=== PATIENT | female | born 1975 | race American Indian/Alaskan Native ===

== ENCOUNTER 2017-07-13 23:00 | Emergency (ER) | payer MEDICAID, MEDICARE, OTHER ==
[2017-07-13] MEDS ORDERED: LORazepam 1 MG Tab PO ONE (23:01)
--- NOTE | 2017-07-13 23:05 | EDM.PDOC ---
ED HPI GENERAL MEDICAL PROBLEM - General Chief Complaint: Asthma Stated Complaint: IN BY AMBULANCE Time Seen by Provider: 07/13/17 23:03 Source of Information: Reports: Patient, EMS History Limitations: Reports: No Limitations - History of Present Illness INITIAL COMMENTS - FREE TEXT/NARRATIVE: states been having sob all day worse tonight and neb not working, EMS gave duoneb & IV solumedrol en route. - Related Data Allergies Allergy/AdvReac Type Severity Reaction Status Date / Time No Known Allergies Allergy Verified 07/13/17 23:10 Home Meds: Home Meds Albuterol [Proventil HFA] 6.7 gm INH Q6H 11/08/15 [History] Albuterol/Ipratropium [DuoNeb 3.0-0.5 MG/3 ML] 3 ml NEB Q4HRRT 11/08/15 [History ] Past Medical History Respiratory History: Reports: Asthma Endocrine/Metabolic History: Reports: Hyperthyroidism - Past Surgical History Female Surgical History: Reports: Section, Hysterectomy Social & Family History - Family History Family Medical History: Unobtainable - Tobacco Use Smoking Status *Q: Current Every Day Smoker Years of Tobacco use: 25 Packs/Tins Daily: 0.1 Used Tobacco, but Quit: No Second Hand Smoke Exposure: No - Recreational Drug Use Recreational Drug Use: No - Living Situation & Occupation Living situation: Reports: with Family Occupation: Unemployed ED ROS GENERAL - Review of Systems Review Of Systems: ROS reveals no pertinent complaints other than HPI. ED EXAM, GENERAL - Physical Exam Exam: See Below Exam Limited By: No Limitations General Appearance: Alert, WD/WN, Anxious, Mild Distress Ears: Hearing Grossly Normal Throat/Mouth: Normal Voice, No Airway Compromise Head: Atraumatic Neck: Non-Tender, Full Range of Motion Respiratory/Chest: Decreased Breath Sounds, Rhonchi, Wheezing, Accessory Muscle Use, Prolonged Expiration Cardiovascular: Regular Rate, Rhythm GI/Abdominal: Soft, Non-Tender Neurological: Alert, Oriented, Normal Cognition, Normal Gait, No Motor/Sensory Deficits Psychiatric: Anxious Skin Exam: Warm, Dry, Normal Color Lymphatic: No Adenopathy Course - Vital Signs Last Recorded V/S: Last Vital Signs Temp 36.8 C 07/13/17 23:06 Pulse 130 H 07/13/17 23:06 Resp 24 H 07/13/17 23:06 BP 117/59 L 07/13/17 23:06 Pulse Ox 97 07/13/17 23:06 - Orders/Labs/Meds Orders: Active Orders 24 hr Category Date Time Status RT Aerosol Therapy [RC] ASDIRECTED Care 07/13/17 23:08 Active CULTURE BLOOD [BC] Stat Lab 07/13/17 23:10 Received Labs: Laboratory Tests 07/13/17 07/13/17 07/13/17 Range/Units 23:10 23:10 23:10 WBC 14.8 H (5.0-10.0) 10^3/uL RBC 4.66 (4.2-5.4) 10^6/uL Hgb 13.5 (12.0-16.0) g/dL Hct 39.8 (37.0-47.0) % MCV 85.4 (80-100) fL MCH 29.0 (27.0-34.0) pg MCHC 33.9 (33.0-35.0) g/dL Plt Count 334 D (150-450) 10^3/uL Neut % (Auto) 65.7 (42.2-75.2) % Lymph % (Auto) 23.0 (20.5-50.1) % [place] % (Auto) 4.9 (2-8) % Eos % (Auto) 6.3 H (1.0-3.0) % Baso % (Auto) 0.1 (0.0-1.0) % Add Manual Diff Yes Neutrophils % (Manual) 70 (42-75) % Lymphocytes % (Manual) 21 (20-50) % Monocytes % (Manual) 4 (2-8) % Eosinophils % (Manual) 5 H (1-3) % Sodium 139 (135-145) mmol/L Potassium 3.7 (3.6-5.0) mmol/L Chloride 104 (101-111) mmol/L Carbon Dioxide 26.0 (21.0-31.0) mmol/L Anion Gap 12.7 BUN 15 (7-18) mg/dL Creatinine 0.8 (0.6-1.3) mg/dL Est Cr Clr Drug Dosing 72.45 mL/min Estimated GFR (MDRD) > 60 BUN/Creatinine Ratio 18.75 Glucose 150 H (74-105) mg/dL Lactic Acid 2.1 (0.5-2.2) mmol/L Calcium 8.9 (8.4-10.2) mg/dl Total Bilirubin 0.4 (0.2-1.0) mg/dL AST 22 (10-42) IU/L ALT 17 (10-60) IU/L Alkaline Phosphatase 67 (42-121) IU/L Total Protein 7.3 (6.7-8.2) g/dl Albumin 3.9 (3.2-5.5) g/dl Globulin 3.4 Albumin/Globulin Ratio 1.15 Meds: Medications Discontinued Medications Generic Name Dose Route Start Last Admin Trade Name Freq PRN Reason Stop Dose Admin Albuterol/Ipratropium 3 ml 07/13/17 23:07 07/13/17 23:13 Duoneb 3.0-0.5 Mg/3 Ml NEB 07/13/17 23:08 3 ml ONETIME ONE Administration Lorazepam 1 mg 07/13/17 23:08 07/13/17 23:13 Ativan IVPUSH 07/13/17 23:09 1 mg ONETIME ONE Administration Lorazepam Confirm 07/14/17 00:07 07/14/17 04:21 Ativan Administered 07/14/17 00:08 Not Given Dose 1 mg .ROUTE .STK-MED ONE - Re-Assessments/Exams Free Text/Narrative Re-Assessment/Exam: 07/13/17 23:45 results discussed with pt who is feeling much better post IV ativan. pt admits to doing things she shouldn't. Departure - Departure Time of Disposition: 00:15 Disposition: Home, Self-Care 01 Condition: Good Clinical Impression: Asthma exacerbation Qualifiers: Asthma severity: mild Asthma persistence: intermittent Qualified Code(s): J45.21 - Mild intermittent asthma with (acute) exacerbation - Discharge Information Instructions: Asthma, Adult, [id number] Forms: ED Department Discharge Additional Instructions: 1) CONTINUE HOME MEDS 2) FOLLOW UP AT CLINIC 3) RECHECK NEEDED RX TOGO; ATIVAN 1MG X 1 - My Orders Last 24 Hours: My Active Orders 07/13/17 23:08 RT Aerosol Therapy [RC] ASDIRECTED 07/13/17 23:10 CULTURE BLOOD [BC] Stat - Assessment/Plan Last 24 Hours: My Active Orders 07/13/17 23:08 RT Aerosol Therapy [RC] ASDIRECTED 07/13/17 23:10 CULTURE BLOOD [BC] Stat
[2017-07-13 23:07] VITALS: BP 117/59
[2017-07-13] MEDS ORDERED: Albuterol/Ipratropium 3.0-0.5 MG/3 ML Neb Soln NEB ONE (23:07)
[2017-07-13] MEDS ORDERED: LORazepam 2 MG/ML Syringe IVPUSH ONE (23:08)
[2017-07-13 23:38] LABS: CHLORIDE,CL 104 mmol/L (101-111); SODIUM,NA 139 mmol/L (135-145)
[2017-07-14] MEDS ORDERED: LORazepam 1 MG Tab ONE (00:07)
== END 2017-07-14 00:16 | disposition home or self-care (01) ==
LOC: DL.ED 23:00
DX: J45.21 Mild intermittent asthma with (acute) exacerbation (principal); F17.210 Nicotine dependence, cigarettes, uncomplicated
CPT/HCPCS: 36415; 71010; 80053; 83605; 85025; 87040; 99285; A9270; J2060

== ENCOUNTER 2017-07-15 03:36 | Emergency (ER) | payer MEDICAID, OTHER ==
[2017-07-15] MEDS ORDERED: methylPREDNISolone Sodium Succinate 125 MG/2 ML SDV IVPUSH ONE (03:38)
[2017-07-15 03:39] VITALS: BP 131/53
--- NOTE | 2017-07-15 03:41 | EDM.PDOC ---
ED HPI GENERAL MEDICAL PROBLEM - General Chief Complaint: Respiratory Problem Stated Complaint: IN BY AMBULANCE Time Seen by Provider: 07/15/17 03:39 Source of Information: Reports: Patient History Limitations: Reports: No Limitations - History of Present Illness INITIAL COMMENTS - FREE TEXT/NARRATIVE: was here yesterday for same ran out of Rx for neb. been SOB all day got worse tonight. EMS gave neb en route. - Related Data Allergies Allergy/AdvReac Type Severity Reaction Status Date / Time No Known Allergies Allergy Verified 07/15/17 03:37 Home Meds: Home Meds Albuterol [Proventil HFA] 6.7 gm INH Q6H 11/08/15 [History] Albuterol/Ipratropium [DuoNeb 3.0-0.5 MG/3 ML] 3 ml NEB Q4HRRT 11/08/15 [History ] Past Medical History - Past Health History Medical/Surgical History: Denies Medical/Surgical History Respiratory History: Reports: Asthma Endocrine/Metabolic History: Reports: Hyperthyroidism - Past Surgical History Female Surgical History: Reports: Section, Hysterectomy Social & Family History - Family History Family Medical History: Unobtainable - Tobacco Use Smoking Status *Q: Current Every Day Smoker Years of Tobacco use: 25 Packs/Tins Daily: 0.1 Used Tobacco, but Quit: No Second Hand Smoke Exposure: No - Caffeine Use Caffeine Use: Reports: Coffee - Recreational Drug Use Recreational Drug Use: No Recreational Drug Type: Reports: Marijuana/Hashish, Methamphetamine Recreational Drug Use Frequency: Binges Recreational Drug Last Use: t-1 - Living Situation & Occupation Living situation: Reports: with Family Occupation: Unemployed ED ROS GENERAL - Review of Systems Review Of Systems: ROS reveals no pertinent complaints other than HPI. ED EXAM, GENERAL - Physical Exam Exam: See Below Exam Limited By: No Limitations General Appearance: Alert, WD/WN, Mild Distress, Moderate Distress, Other (sob) Ears: Hearing Grossly Normal Throat/Mouth: Normal Voice, No Airway Compromise Head: Atraumatic Neck: Non-Tender, Full Range of Motion Respiratory/Chest: Decreased Breath Sounds, Rales, Rhonchi, Accessory Muscle Use Cardiovascular: Regular Rate, Rhythm GI/Abdominal: Soft, Non-Tender Neurological: Alert, Oriented, Normal Cognition, Normal Gait, No Motor/Sensory Deficits Psychiatric: Anxious Skin Exam: Warm, Dry, Normal Color Lymphatic: No Adenopathy Course - Vital Signs Last Recorded V/S: Last Vital Signs Temp 36.6 C 07/15/17 03:37 Pulse 120 H 07/15/17 03:37 Resp 28 H 07/15/17 03:37 BP 131/53 L 07/15/17 03:37 Pulse Ox 98 07/15/17 03:37 - Orders/Labs/Meds Orders: Active Orders 24 hr Category Date Time Status RT Aerosol Therapy [RC] ASDIRECTED Care 07/15/17 04:12 Active DRUG SCREEN URINE BIORAD [URCHEM] Stat Lab 07/15/17 03:46 Ordered UA W/O MICROSCOPIC [URIN] Stat Lab 07/15/17 03:46 Ordered Labs: Laboratory Tests 07/15/17 07/15/17 Range/Units 03:55 03:55 WBC 13.6 H (5.0-10.0) 10^3/uL RBC 4.87 (4.2-5.4) 10^6/uL Hgb 14.0 (12.0-16.0) g/dL Hct 41.6 (37.0-47.0) % MCV 85.4 (80-100) fL MCH 28.7 (27.0-34.0) pg MCHC 33.7 (33.0-35.0) g/dL Plt Count 346 (150-450) 10^3/uL Neut % (Auto) 67.8 (42.2-75.2) % Lymph % (Auto) 20.0 L (20.5-50.1) % [place] % (Auto) 5.2 (2-8) % Eos % (Auto) 6.9 H (1.0-3.0) % Baso % (Auto) 0.1 (0.0-1.0) % Sodium 139 (135-145) mmol/L Potassium 3.1 L (3.6-5.0) mmol/L Chloride 104 (101-111) mmol/L Carbon Dioxide 24.0 (21.0-31.0) mmol/L Anion Gap 14.1 BUN 8 (7-18) mg/dL Creatinine 0.6 (0.6-1.3) mg/dL Est Cr Clr Drug Dosing 96.60 mL/min Estimated GFR (MDRD) > 60 BUN/Creatinine Ratio 13.33 Glucose 132 H (74-105) mg/dL Calcium 9.2 (8.4-10.2) mg/dl Total Bilirubin 0.7 (0.2-1.0) mg/dL AST 19 (10-42) IU/L ALT 17 (10-60) IU/L Alkaline Phosphatase 65 (42-121) IU/L Total Protein 7.9 (6.7-8.2) g/dl Albumin 4.1 (3.2-5.5) g/dl Globulin 3.8 Albumin/Globulin Ratio 1.08 Meds: Medications Discontinued Medications Generic Name Dose Route Start Last Admin Trade Name Freq PRN Reason Stop Dose Admin Albuterol/Ipratropium 3 ml 07/15/17 04:12 07/15/17 04:16 Duoneb 3.0-0.5 Mg/3 Ml NEB 07/15/17 04:13 3 ml ONETIME ONE Administration Lorazepam 1 mg 07/15/17 04:30 07/15/17 04:35 Ativan IVPUSH 07/15/17 04:31 1 mg ONETIME ONE Administration Methylprednisolone Sodium Succinate 125 mg 07/15/17 03:38 07/15/17 03:42 Solu-Medrol IVPUSH 07/15/17 03:39 125 mg ONETIME ONE Administration - Re-Assessments/Exams Free Text/Narrative Re-Assessment/Exam: 07/15/17 06:31 re-exam; sleeping arousable no further sob. Departure - Departure Time of Disposition: 06:31 Disposition: Home, Self-Care 01 Condition: Good Clinical Impression: Asthma with status asthmaticus Qualifiers: Asthma severity: severe persistent Qualified Code(s): J45.52 - Severe persistent asthma with status asthmaticus - Discharge Information Instructions: Shortness of Breath, [id number] Forms: ED Department Discharge Additional Instructions: 1) continue nebs 3 times daily as needed. 2) follow up at clinic or recheck as needed rx given; albuterol 2.5mg solution tid prn x 1 box - My Orders Last 24 Hours: My Active Orders 07/15/17 03:46 DRUG SCREEN URINE BIORAD [URCHEM] Stat UA W/O MICROSCOPIC [URIN] Stat 07/15/17 04:12 RT Aerosol Therapy [RC] ASDIRECTED - Assessment/Plan Last 24 Hours: My Active Orders 07/15/17 03:46 DRUG SCREEN URINE BIORAD [URCHEM] Stat UA W/O MICROSCOPIC [URIN] Stat 07/15/17 04:12 RT Aerosol Therapy [RC] ASDIRECTED
[2017-07-15] MEDS ORDERED: Albuterol/Ipratropium 3.0-0.5 MG/3 ML Neb Soln NEB ONE (04:12)
[2017-07-15 04:21] LABS: CHLORIDE,CL 104 mmol/L (101-111); SODIUM,NA 139 mmol/L (135-145)
[2017-07-15] MEDS ORDERED: LORazepam 2 MG/ML Syringe IVPUSH ONE (04:30)
== END 2017-07-15 06:38 | disposition home or self-care (01) ==
LOC: DL.ED 03:36
DX: J45.52 Severe persistent asthma with status asthmaticus (principal); F17.210 Nicotine dependence, cigarettes, uncomplicated
CPT/HCPCS: 36415; 80053; 85025; 94640; 96374; 96375; 99285; J2060; J2930

== ENCOUNTER 2017-12-04 19:39 | Emergency (ER) | payer MEDICAID, OTHER ==
[2017-12-04] MEDS ORDERED: Succinylcholine 200 MG/10 ML MDV IV ONE (19:40)
[2017-12-04] MEDS ORDERED: Midazolam 1 MG/ML 2 ML SDV IV ONE (19:40)
[2017-12-04] MEDS ORDERED: Rocuronium 50 MG/5 ML Vial IV ONE (19:40)
[2017-12-04] MEDS ORDERED: fentaNYL 100 MCG/2 ML SDV IV ONE (19:40)
[2017-12-04] MEDS ORDERED: Propofol 200 MG/20 ML SDV IV ONE (19:40)
[2017-12-04] MEDS ORDERED: Albuterol 0.083% 2.5 MG/3 ML Neb Soln NEB ONE ×2 (19:42→20:30)
[2017-12-04] MEDS ORDERED: LORazepam 2 MG/ML Syringe IVPUSH ONE ×2 (19:42→20:01)
[2017-12-04] MEDS ORDERED: Sodium Chloride 0.9% 1,000 ML IV ONE (19:48)
[2017-12-04] MEDS ORDERED: Albuterol/Ipratropium 3.0-0.5 MG/3 ML Neb Soln NEB ONE (20:05)
[2017-12-04 20:14] VITALS: BP 103/83
--- NOTE | 2017-12-04 20:22 | EDM.PDOC ---
ED HPI GENERAL MEDICAL PROBLEM - General Chief Complaint: Respiratory Problem Stated Complaint: BY AMBULANCE-RESP COMPLAINT Time Seen by Provider: 12/04/17 19:45 Source of Information: Reports: Patient, EMS History Limitations: Reports: No Limitations - History of Present Illness INITIAL COMMENTS - FREE TEXT/NARRATIVE: ED via [facility] with respiratory distress, hx asthma, patient reports intially sx starting this am, then reported to Nursing started yesterday. Has been using nebs at home without relief. Admits to meth use yesterday. Multiple varied age trackmarks to upper extremities. Duoneb and solumedrol 125mg given enroute by EMS. Treatments ADVERTISING SALES ASSOCIATE: Reports: Other (see below) Other Treatments ADVERTISING SALES ASSOCIATE: albuterol nebulizers - Related Data Allergies Allergy/AdvReac Type Severity Reaction Status Date / Time No Known Allergies Allergy Verified 12/04/17 19:54 Home Meds: Home Meds Albuterol [Proventil HFA] 6.7 gm INH Q6H 11/08/15 [History] Albuterol/Ipratropium [DuoNeb 3.0-0.5 MG/3 ML] 3 ml NEB Q4HRRT 11/08/15 [History ] Past Medical History - Past Health History Medical/Surgical History: Denies Medical/Surgical History Respiratory History: Reports: Asthma Endocrine/Metabolic History: Reports: Hyperthyroidism - Past Surgical History Female Surgical History: Reports: Section, Hysterectomy Social & Family History - Family History Family Medical History: Unobtainable - Tobacco Use Smoking Status *Q: Current Every Day Smoker Years of Tobacco use: 25 Packs/Tins Daily: 0.1 Used Tobacco, but Quit: No Second Hand Smoke Exposure: No - Caffeine Use Caffeine Use: Reports: Coffee - Recreational Drug Use Recreational Drug Use: No Recreational Drug Type: Reports: Marijuana/Hashish, Methamphetamine Recreational Drug Use Frequency: Binges Recreational Drug Last Use: t-1 - Living Situation & Occupation Living situation: Reports: with Family Occupation: Unemployed ED ROS GENERAL - Review of Systems Review Of Systems: Unable To Obtain ED EXAM, GENERAL - Physical Exam Exam: See Below Exam Limited By: Respiratory Distress General Appearance: Alert, Severe Distress Eye Exam: Bilateral Eye: EOMI, PERRL Ears: Normal External Exam, Normal TMs Nose: Normal Inspection Throat/Mouth: Other (membranes dry) Head: Atraumatic, Normocephalic Neck: Normal Inspection Respiratory/Chest: Respiratory Distress, Rhonchi, Wheezing (inspiratory expiratory throughout) Cardiovascular: Regular Rate, Rhythm, Tachycardia GI/Abdominal: Normal Bowel Sounds Back Exam: Normal Inspection Extremities: Normal Range of Motion Neurological: Inattentive Psychiatric: Anxious Skin Exam: Warm, Dry, Ecchymosis (scatered), Tattoo(s), Other (multiple track sharp to anticubitial reas and right hand) Course - Vital Signs Last Recorded V/S: Last Vital Signs Temp 97.2 F 12/04/17 19:44 Pulse 139 H 12/04/17 20:05 Resp 34 H 12/04/17 20:05 BP 103/83 12/04/17 20:05 Pulse Ox 96 12/04/17 20:05 - Orders/Labs/Meds Orders: Active Orders 24 hr Category Date Time Status Bailey Catheter Insertion [Insert Urinary Catheter] [OM. Care 12/04/17 21:15 Ordered PC] Q24H RT Aerosol Therapy [RC] ASDIRECTED Care 12/04/17 19:43 Active RT Aerosol Therapy [RC] ASDIRECTED Care 12/04/17 20:05 Active RT Aerosol Therapy [RC] ASDIRECTED Care 12/04/17 20:30 Active ABG [BLOOD GAS ARTERIAL] [BG] Stat Lab 12/04/17 20:26 Ordered Labs: Laboratory Tests 12/04/17 12/04/17 12/04/17 Range/Units 20:00 20:00 20:00 WBC 12.3 H (5.0-10.0) 10^3/uL RBC 4.55 (4.2-5.4) 10^6/uL Hgb 13.3 (12.0-16.0) g/dL Hct 38.6 (37.0-47.0) % MCV 84.8 (80-100) fL MCH 29.2 (27.0-34.0) pg MCHC 34.5 (33.0-35.0) g/dL Plt Count 327 (150-450) 10^3/uL Neut % (Auto) 56.7 (42.2-75.2) % Lymph % (Auto) 29.0 (20.5-50.1) % [place] % (Auto) 7.9 (2-8) % Eos % (Auto) 6.2 H (1.0-3.0) % Baso % (Auto) 0.2 (0.0-1.0) % Sodium 140 (135-145) mmol/L Potassium 3.3 L (3.6-5.0) mmol/L Chloride 107 (101-111) mmol/L Carbon Dioxide 26.0 (21.0-31.0) mmol/L Anion Gap 10.3 BUN 8 (7-18) mg/dL Creatinine 0.6 (0.6-1.3) mg/dL Est Cr Clr Drug Dosing 96.60 mL/min Estimated GFR (MDRD) > 60 BUN/Creatinine Ratio 13.33 Glucose 116 H (74-105) mg/dL Lactic Acid 2.2 (0.5-2.2) mmol/L Calcium 8.0 L (8.4-10.2) mg/dl Total Bilirubin 0.3 (0.2-1.0) mg/dL AST 20 (10-42) IU/L ALT 13 (10-60) IU/L Alkaline Phosphatase 58 (42-121) IU/L Total Protein 6.7 (6.7-8.2) g/dl Albumin 3.6 (3.2-5.5) g/dl Globulin 3.1 Albumin/Globulin Ratio 1.16 Urine Color (YELLOW) Urine Appearance (CLEAR) Urine pH (5.0-9.0) Ur Specific [place] (1.005-1.030) Urine Protein (NEGATIVE) Urine Glucose (UA) (NEGATIVE) Urine Ketones (NEGATIVE) Urine Occult Blood (NEGATIVE) Urine Nitrite (NEGATIVE) Urine Bilirubin (NEGATIVE) Urine Urobilinogen (0.2-1.0) mg/dL Ur Leukocyte Esterase (NEGATIVE) Urine RBC /HPF Urine WBC (0-5/HPF) /HPF Ur Epithelial Cells /HPF Urine Bacteria (0-FEW/HPF) /HPF Urine Opiates Screen (NEGATIVE) Ur Oxycodone Screen (NEGATIVE) Urine Methadone Screen (NEGATIVE) Ur Barbiturates Screen (NEGATIVE) U Tricyclic Antidepress (NEGATIVE) Ur Phencyclidine Scrn (NEGATIVE) Ur Amphetamine Screen (NEGATIVE) U Methamphetamines Scrn (NEGATIVE) Urine MDMA Screen (NEGATIVE) U Benzodiazepines Scrn (NEGATIVE) Urine Cocaine Screen (NEGATIVE) U Marijuana (THC) Screen (NEGATIVE) 12/04/17 12/04/17 Range/Units 20:59 20:59 WBC (5.0-10.0) 10^3/uL RBC (4.2-5.4) 10^6/uL Hgb (12.0-16.0) g/dL Hct (37.0-47.0) % MCV (80-100) fL MCH (27.0-34.0) pg MCHC (33.0-35.0) g/dL Plt Count (150-450) 10^3/uL Neut % (Auto) (42.2-75.2) % Lymph % (Auto) (20.5-50.1) % [place] % (Auto) (2-8) % Eos % (Auto) (1.0-3.0) % Baso % (Auto) (0.0-1.0) % Sodium (135-145) mmol/L Potassium (3.6-5.0) mmol/L Chloride (101-111) mmol/L Carbon Dioxide (21.0-31.0) mmol/L Anion Gap BUN (7-18) mg/dL Creatinine (0.6-1.3) mg/dL Est Cr Clr Drug Dosing mL/min Estimated GFR (MDRD) BUN/Creatinine Ratio Glucose (74-105) mg/dL Lactic Acid (0.5-2.2) mmol/L Calcium (8.4-10.2) mg/dl Total Bilirubin (0.2-1.0) mg/dL AST (10-42) IU/L ALT (10-60) IU/L Alkaline Phosphatase (42-121) IU/L Total Protein (6.7-8.2) g/dl Albumin (3.2-5.5) g/dl Globulin Albumin/Globulin Ratio Urine Color Light yellow (YELLOW) Urine Appearance Clear (CLEAR) Urine pH 6.0 (5.0-9.0) Ur Specific [place] <= 1.005 (1.005-1.030) Urine Protein Negative (NEGATIVE) Urine Glucose (UA) Negative (NEGATIVE) Urine Ketones Negative (NEGATIVE) Urine Occult Blood Negative (NEGATIVE) Urine Nitrite Negative (NEGATIVE) Urine Bilirubin Negative (NEGATIVE) Urine Urobilinogen 0.2 (0.2-1.0) mg/dL Ur Leukocyte Esterase Negative (NEGATIVE) Urine RBC 0-5 /HPF Urine WBC 0-5 (0-5/HPF) /HPF Ur Epithelial Cells Few /HPF Urine Bacteria Rare (0-FEW/HPF) /HPF Urine Opiates Screen Negative (NEGATIVE) Ur Oxycodone Screen Negative (NEGATIVE) Urine Methadone Screen Negative (NEGATIVE) Ur Barbiturates Screen Negative (NEGATIVE) U Tricyclic Antidepress Negative (NEGATIVE) Ur Phencyclidine Scrn Negative (NEGATIVE) Ur Amphetamine Screen Positive H (NEGATIVE) U Methamphetamines Scrn Positive H (NEGATIVE) Urine MDMA Screen Negative (NEGATIVE) U Benzodiazepines Scrn Negative (NEGATIVE) Urine Cocaine Screen Negative (NEGATIVE) U Marijuana (THC) Screen Positive H (NEGATIVE) Meds: Medications Discontinued Medications Generic Name Dose Route Start Last Admin Trade Name Freq PRN Reason Stop Dose Admin Albuterol 2.5 mg 12/04/17 19:42 12/04/17 19:49 Proventil Neb Soln NEB 12/04/17 19:43 2.5 mg ONETIME ONE Administration Albuterol 2.5 mg 12/04/17 20:30 12/04/17 20:34 Proventil Neb Soln NEB 12/04/17 20:31 2.5 mg ONETIME ONE Administration Albuterol/Ipratropium 3 ml 12/04/17 20:05 12/04/17 20:09 Duoneb 3.0-0.5 Mg/3 Ml NEB 12/04/17 20:06 3 ml ONETIME ONE Administration Fentanyl Confirm 12/04/17 20:46 Sublimaze Administered 12/04/17 20:47 Dose 100 mcg .ROUTE .STK-MED ONE Sodium Chloride 1,000 mls @ 999 mls/hr 12/04/17 19:48 12/04/17 19:50 Normal Saline IV 12/04/17 20:48 999 mls/hr .BOLUS ONE Administration Lorazepam 1 mg 12/04/17 19:42 12/04/17 19:49 Ativan IVPUSH 12/04/17 19:43 1 mg ONETIME ONE Administration Lorazepam 1 mg 12/04/17 20:01 12/04/17 20:06 Ativan IVPUSH 12/04/17 20:02 1 mg ONETIME ONE Administration Midazolam HCl Confirm 12/04/17 20:45 Versed 1 Mg/Ml Administered 12/04/17 20:46 Dose 2 mg .ROUTE .STK-MED ONE - Re-Assessments/Exams Free Text/Narrative Re-Assessment/Exam: 12/04/17 21:10 minimal change with multiple Albuterol and Duo neb treatments. Continued wheezing and distress. Increasing effort and lethargy. Patient informed impending intubation due to respiratory distress. Nodding head in understanding . Dr Dionisio Joel accepting of patient in tx for further management. ELECTRICAL INSTRUMENT TECHNICIAN here for patient sedation and ET placement. Patient intubated 7-O ET. Placement confirmed via CXR. [facility] here. Transport via [facility]. Stable but guarded condition 12/04/17 21:26 Departure - Departure Time of Disposition: 21:25 Disposition: DC/Tfer to Acute Hospital 02 Condition: Serious Clinical Impression: Methamphetamine abuse Asthma with status asthmaticus Qualifiers: Asthma severity: severe persistent Qualified Code(s): J45.52 - Severe persistent asthma with status asthmaticus - Discharge Information Referrals: PCP,Unobtain [Ordering Only Provider] - Forms: ED Department Discharge - My Orders Last 24 Hours: My Active Orders 12/04/17 19:43 RT Aerosol Therapy [RC] ASDIRECTED 12/04/17 20:05 RT Aerosol Therapy [RC] ASDIRECTED 12/04/17 20:26 ABG [BLOOD GAS ARTERIAL] [BG] Stat 12/04/17 20:30 RT Aerosol Therapy [RC] ASDIRECTED 12/04/17 21:15 Bailey Catheter Insertion [Insert Urinary Catheter] [OM.PC] Q24H - Assessment/Plan Last 24 Hours: My Active Orders 12/04/17 19:43 RT Aerosol Therapy [RC] ASDIRECTED 12/04/17 20:05 RT Aerosol Therapy [RC] ASDIRECTED 12/04/17 20:26 ABG [BLOOD GAS ARTERIAL] [BG] Stat 12/04/17 20:30 RT Aerosol Therapy [RC] ASDIRECTED 12/04/17 21:15 Bailey Catheter Insertion [Insert Urinary Catheter] [OM.PC] Q24H
[2017-12-04 20:31] LABS: CHLORIDE,CL 107 mmol/L (101-111); SODIUM,NA 140 mmol/L (135-145)
[2017-12-04 20:33] LABS: O2 DELIVERY DEVICE ROOM AIR
[2017-12-04] MEDS ORDERED: Midazolam 1 MG/ML 2 ML SDV ONE (20:45)
[2017-12-04] MEDS ORDERED: fentaNYL 100 MCG/2 ML SDV ONE (20:46)
--- NOTE | 2017-12-04 21:13 | PCM.SN ---
- Free Text/Narrative Note: Intubation. Request per ER provider to intubate Pt. Pt w resp distress and fatigue secondary to asthma. Pt states NPO > 8 hrs, no allergies, no complications w anesthesia. Pt medicated w 2 mg versed and 100 mcg fentanyl at approx 2049, defasciculating dose of 5 of rocuronium. 150 mg of propofol and 70 mg of anectine. Pt intubated w glidescope, 7.0 ETT 20 cm at the lip. Cricoid pressure maintained throughout intubation. BBS w ETT fogging and pos ETCO2, OG tube placed and ETT placement confirmed w X ray. Pt given additional 50 mg of Propofol and 30 mg of rocuronium at approx 2104. Care handed off to [employer] full report
[2017-12-05 07:15] LABS: ALLEN TEST PERFORMED; BASE EXCESS ARTERIAL -7 mmol/L ((-2)-(+3)); BICARBONATE,ARTERIAL 18.6 mmol/L (22-26); O2 SATURATION ARTERIAL 91 % (95-100); PCO2 ARTERIAL 41 mmHg (35-45); PO2 ARTERIAL 65 mmHg (70-100)
== END 2017-12-04 21:20 ==
LOC: DL.ED 19:39
DX: J45.52 Severe persistent asthma with status asthmaticus (principal); F15.10 Other stimulant abuse, uncomplicated; F17.210 Nicotine dependence, cigarettes, uncomplicated
CPT/HCPCS: 31500; 36415; 36600; 51702; 71045; 80053; 80305; 81001; 82803; 83605; 85025; 96365; 96375; 99285; J0330; J2060; J2250; J2704; J3010; J7030; J7620

== ENCOUNTER 2020-02-20 22:48 | Emergency (ER) | payer MEDICAID, OTHER ==
[2020-02-20 23:03] VITALS: BP 138/79; PULSE 135
[2020-02-20] MEDS ORDERED: predniSONE 20 MG Tab PO ONE (23:06)
[2020-02-20] MEDS ORDERED: Albuterol/Ipratropium 3.0-0.5 MG/3 ML Neb Soln NEB ONE (23:06)
--- NOTE | 2020-02-20 23:10 | EDM.PDOC ---
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 Treatments - Related Data Allergies Allergy/AdvReac Type Severity Reaction Status Date / Time No Known Allergies Allergy Verified 02/20/20 22:55 Home Meds: Home Meds Albuterol [Proventil HFA] 6.7 gm INH Q6H 11/08/15 [History] Albuterol/Ipratropium [DuoNeb 3.0-0.5 MG/3 ML] 3 ml NEB Q4HRRT 11/08/15 [History ] Fluticasone Propion/Salmeterol [Wixela 500-50 Inhub] 1 inh INH DAILY 02/20/20 [ History] Past Medical History - Past Health History Medical/Surgical History: Denies Medical/Surgical History Respiratory History: Reports: Asthma Psychiatric History: Reports: Addiction Endocrine/Metabolic History: Reports: Hyperthyroidism - Past Surgical History Female Surgical History: Reports: Section, Hysterectomy Social & Family History - Family History Family Medical History: Unobtainable - Caffeine Use Caffeine Use: Reports: Coffee - Living Situation & Occupation Living situation: Reports: with Family Occupation: Unemployed ED ROS GENERAL - Review of Systems Review Of Systems: Comprehensive ROS is negative, except as noted in HPI. ED EXAM, GENERAL - Physical Exam Exam: See Below Exam Limited By: No Limitations General Appearance: Alert, WD/WN, Mild Distress, Other (sob) Ears: Hearing Grossly Normal Throat/Mouth: Normal Voice, No Airway Compromise Head: Atraumatic Neck: Non-Tender, Full Range of Motion Respiratory/Chest: Decreased Breath Sounds, Rhonchi, Wheezing Cardiovascular: Regular Rate, Rhythm GI/Abdominal: Soft, Non-Tender Neurological: Alert, Oriented, Normal Cognition, Normal Gait, No Motor/Sensory Deficits Psychiatric: Flat Affect Skin Exam: Warm, Dry, Normal Color Lymphatic: No Adenopathy Course - Vital Signs Last Recorded V/S: Last Vital Signs Temp 36.8 C 02/20/20 22:59 Pulse 135 H 02/20/20 22:59 Resp 22 H 02/20/20 22:59 BP 138/79 02/20/20 22:59 Pulse Ox 93 L 02/20/20 22:59 - Orders/Labs/Meds Orders: Active Orders 24 hr Category Date Time Status RT Aerosol Therapy [RC] ASDIRECTED Care 02/20/20 23:06 Active Meds: Medications Discontinued Medications Generic Name Dose Route Start Last Admin Trade Name Elver PRN Reason Stop Dose Admin Albuterol/Ipratropium 3 ml 02/20/20 23:06 02/20/20 23:13 Duoneb 3.0-0.5 Mg/3 Ml NEB 02/20/20 23:07 3 ml ONETIME ONE Administration Methylprednisolone Sodium Succinate 125 mg 02/20/20 23:36 02/20/20 23:44 Solu-Medrol IM 02/20/20 23:37 125 mg ONETIME ONE Administration Prednisone 20 mg 02/20/20 23:06 02/20/20 23:12 Prednisone PO 02/20/20 23:07 20 mg ONETIME ONE Administration Departure - Departure Time of Disposition: 23:07 Disposition: Home, Self-Care 01 Condition: Good Clinical Impression: Asthma exacerbation Qualifiers: Asthma severity: moderate Asthma persistence: persistent Qualified Code(s): J45.41 - Moderate persistent asthma with (acute) exacerbation - Discharge Information Instructions: Asthma, Adult, [id number] Forms: ED Department Discharge Additional Instructions: 1) continue nebs 2) follow up at clinic rx given; medrol dospak Sepsis Event Note - Evaluation Sepsis Screening Result: No Definite Risk - Focused Exam Vital Signs: Vital Signs Temp Pulse Resp BP Pulse Ox 02/20/20 22:59 36.8 C 135 H 22 H 138/79 93 L Date Exam was Performed: 02/20/20 Time Exam was Performed: 23:51 - My Orders Last 24 Hours: My Active Orders 02/20/20 23:06 RT Aerosol Therapy [RC] ASDIRECTED - Assessment/Plan Last 24 Hours: My Active Orders 02/20/20 23:06 RT Aerosol Therapy [RC] ASDIRECTED
[2020-02-20] MEDS ORDERED: methylPREDNISolone Sodium Succinate 125 MG/2 ML SDV IM ONE (23:36)
== END 2020-02-20 23:48 | disposition home or self-care (01) ==
LOC: DL.ED 22:48
DX: J45.41 Moderate persistent asthma with (acute) exacerbation (principal)
CPT/HCPCS: 96372; 99284; J2930; J7512; J7620-GY

== ENCOUNTER 2020-03-24 21:10 | Inpatient (IN) | payer MEDICAID, OTHER ==
[2020-03-24] MEDS ORDERED: Albuterol/Ipratropium 3.0-0.5 MG/3 ML Neb Soln ONE (21:13)
[2020-03-24] MEDS ORDERED: Albuterol/Ipratropium 3.0-0.5 MG/3 ML Neb Soln NEB ONE ×2 (21:15→22:23)
[2020-03-24] MEDS ORDERED: Magnesium Sulfate/D5W 2 GM in Premix Bag 1 BAG IV ONE (21:15)
[2020-03-24] MEDS ORDERED: Sodium Chloride 0.9% 10 ML Syringe FLUSH PRN (21:15)
[2020-03-24] MEDS ORDERED: Sodium Chloride 0.9% 1,000 ML IV ONE ×2 (21:15→22:25)
[2020-03-24] MEDS ORDERED: methylPREDNISolone Sodium Succinate 125 MG/2 ML SDV IVPUSH ONE (21:16)
[2020-03-24 21:51] LABS: ANION GAP 13.9 mEq/L (7-13); CHLORIDE,CL 103 mmol/L (98-107); SODIUM,NA 139 mmol/L (136-145)
--- NOTE | 2020-03-24 21:52 | EDM.PDOC ---
ED HPI GENERAL MEDICAL PROBLEM - General Chief Complaint: Asthma Stated Complaint: ASTHMA Time Seen by Provider: 03/24/20 21:15 Source of Information: Reports: Patient, RN, RN Notes Reviewed History Limitations: Reports: Respiratory Distress - History of Present Illness INITIAL COMMENTS - FREE TEXT/NARRATIVE: Presents to ER with complaint of respiratory distress. Patient states this is been going on for the past 3 days and she has been using her inhalers and nebulizers at home. She states she had a friend stopover today, so had a ride to town, so was brought to the ER at this time. Patient denies fever chills, states she has had a cough. Denies any pain. Denies N/V/D, denies chest pains. Onset: Gradual Duration: Constant, Getting Worse Location: Reports: Chest Severity: Moderate Improves with: Reports: None Worsens with: Reports: None - Related Data Allergies Allergy/AdvReac Type Severity Reaction Status Date / Time No Known Allergies Allergy Verified 03/24/20 21:15 Home Meds: Home Meds Albuterol [Proventil HFA] 6.7 gm INH Q6H 11/08/15 [History] Albuterol/Ipratropium [DuoNeb 3.0-0.5 MG/3 ML] 3 ml NEB Q4HRRT 11/08/15 [History] Fluticasone Propion/Salmeterol [Wixela 500-50 Inhub] 1 inh INH DAILY 02/20/20 [History] Past Medical History - Past Health History Medical/Surgical History: Denies Medical/Surgical History Respiratory History: Reports: Asthma Psychiatric History: Reports: Addiction Endocrine/Metabolic History: Reports: Hyperthyroidism - Past Surgical History Female Surgical History: Reports: Section, Hysterectomy Social & Family History - Family History Family Medical History: Unobtainable - Tobacco Use Smoking Status *Q: Never Smoker Second Hand Smoke Exposure: No - Caffeine Use Caffeine Use: Reports: Coffee - Recreational Drug Use Recreational Drug Use: No - Living Situation & Occupation Living situation: Reports: with Family Occupation: Unemployed ED ROS GENERAL - Review of Systems Review Of Systems: Comprehensive ROS is negative, except as noted in HPI. ED EXAM, GENERAL - Physical Exam Exam: See Below Exam Limited By: Respiratory Distress General Appearance: Alert, WD/WN, Moderate Distress Eye Exam: Bilateral Eye: EOMI, Normal Inspection Ears: Normal External Exam, Hearing Grossly Normal Nose: Normal Inspection Throat/Mouth: Normal Inspection, Normal Voice, No Airway Compromise Head: Atraumatic, Normocephalic Neck: Normal Inspection, Supple, Non-Tender, Full Range of Motion Respiratory/Chest: Respiratory Distress, Decreased Breath Sounds, Crackles (throughout), Wheezing (throughout) Cardiovascular: Normal Peripheral Pulses, No Edema, No Gallop, No JVD, No Murmur, No Rub, Tachycardia Peripheral Pulses: 2+: Radial (L), Radial (R) GI/Abdominal: Normal Bowel Sounds, Soft, Non-Tender, No Organomegaly, No Distention, No Abnormal Bruit, No Mass, Pelvis Stable (Female) Exam: Deferred Rectal (Female) Exam: Deferred Back Exam: Normal Inspection, Full Range of Motion, NT Extremities: Normal Inspection, Normal Range of Motion, Non-Tender, Normal Capillary Refill, No Pedal Edema Neurological: Alert, Oriented, CN II-XII Intact, Normal Cognition, Normal Gait, Normal Reflexes, No Motor/Sensory Deficits Psychiatric: Normal Affect, Normal Mood, Anxious Skin Exam: Warm, Dry, Intact, Normal Color, No Rash Lymphatic: No Adenopathy Course - Vital Signs Last Recorded V/S: Last Vital Signs Temp 96.5 F L 03/24/20 21:12 Pulse 144 H 03/24/20 21:12 Resp 28 H 03/24/20 21:12 BP 130/96 H 03/24/20 21:12 Pulse Ox 94 L 03/24/20 21:12 - Orders/Labs/Meds Orders: Active Orders 24 hr Category Date Time Status Admission Diagnosis [ADT] Stat ADT 03/24/20 23:33 Ordered Admission Status [Patient Status] [ADT] Routine ADT 03/24/20 23:33 Active EKG 12 Lead [EKG Documentation Completion] [RC] URGENT Care 03/24/20 21:42 Active Peripheral IV Care [RC] . DIRECTED Care 03/24/20 21:16 Active RT Aerosol Therapy [RC] ASDIRECTED Care 03/24/20 21:16 Active RT Aerosol Therapy [RC] ASDIRECTED Care 03/24/20 22:23 Active Sodium Chloride 0.9% [Saline Flush] Med 03/24/20 21:15 Active 10 ml FLUSH ASDIRECTED PRN Peripheral IV Insertion Adult [OM.PC] Stat Oth 03/24/20 21:13 Ordered Medication Orders Sodium Chloride (Saline Flush) 10 ml FLUSH ASDIRECTED PRN PRN Reason: Keep Vein Open Last Admin: 03/24/20 21:29 Dose: 10 ml Documented by: LUZMA Labs: Laboratory Tests 03/24/20 03/24/20 03/24/20 Range/Units 21:30 21:30 21:30 WBC 12.6 H (5.0-10.0) 10^3/uL RBC 5.99 H (4.2-5.4) 10^6/uL Hgb 16.5 H D (12.0-16.0) g/dL Hct 48.3 H (37.0-47.0) % MCV 80.6 D (80-100) fL MCH 27.5 (27.0-34.0) pg MCHC 34.2 (33.0-35.0) g/dL Plt Count 461 H D (150-450) 10^3/uL Neut % (Auto) 68.7 (42.2-75.2) % Lymph % (Auto) 20.3 L (20.5-50.1) % [place] % (Auto) 5.8 (2-8) % Eos % (Auto) 5.0 H (1.0-3.0) % Baso % (Auto) 0.2 (0.0-1.0) % Sodium 139 (136-145) mmol/L Potassium 3.9 (3.5-5.1) mmol/L Chloride 103 (98-107) mmol/L Carbon Dioxide 26 (21-32) mmol/L Anion Gap 13.9 H (7-13) mEq/L BUN 7 (7-18) mg/dL Creatinine 0.82 (0.55-1.02) mg/dL Est Cr Clr Drug Dosing 69.24 mL/min Estimated GFR (MDRD) > 60 BUN/Creatinine Ratio 8.5 (No establ ref range) Glucose 158 H (74-99) mg/dL Lactic Acid 1.5 (0.4-2.0) mmol/L Calcium 9.1 (8.5-10.1) mg/dL Magnesium 1.9 (1.8-2.4) mg/dL Total Bilirubin 0.5 (0.2-1.0) mg/dL AST 21 (15-37) U/L ALT 35 (14-59) U/L Alkaline Phosphatase 120 H (46-116) U/L Total Protein 8.5 H (6.4-8.2) g/dL Albumin 3.3 L (3.4-5.0) g/dL Globulin 5.2 Albumin/Globulin Ratio 0.63 Meds: Medications Generic Name Dose Route Start Last Admin Trade Name Freq PRN Reason Stop Dose Admin Sodium Chloride 10 ml 03/24/20 21:15 03/24/20 21:29 Saline Flush FLUSH 10 ml ASDIRECTED PRN Administration Keep Vein Open Discontinued Medications Generic Name Dose Route Start Last Admin Trade Name Freq PRN Reason Stop Dose Admin Albuterol/Ipratropium 3 ml 03/24/20 21:15 03/24/20 21:14 Duoneb 3.0-0.5 Mg/3 Ml NEB 03/24/20 21:16 3 ml ONETIME ONE Administration Albuterol/Ipratropium Confirm 03/24/20 21:13 03/24/20 21:20 Duoneb 3.0-0.5 Mg/3 Ml Administered 03/24/20 21:14 Not Given Dose 3 ml .ROUTE .STK-MED ONE Albuterol/Ipratropium 3 ml 03/24/20 22:23 03/24/20 22:27 Duoneb 3.0-0.5 Mg/3 Ml NEB 03/24/20 22:24 3 ml ONETIME ONE Administration Sodium Chloride 1,000 mls @ 999 mls/hr 03/24/20 21:15 03/24/20 21:29 Normal Saline IV 03/24/20 22:15 999 mls/hr .BOLUS ONE Administration Magnesium Sulfate/Dextrose 2 200 mls @ 100 mls/hr 03/24/20 21:15 03/24/20 21:38 gm/ Premix IV 03/24/20 23:14 100 mls/hr ONETIME ONE Administration Sodium Chloride 1,000 mls @ 999 mls/hr 03/24/20 22:25 03/24/20 22:28 Normal Saline IV 03/24/20 23:25 999 mls/hr .BOLUS ONE Administration Methylprednisolone Sodium Succinate 125 mg 03/24/20 21:16 03/24/20 21:32 Solu-Medrol IVPUSH 03/24/20 21:17 125 mg ONETIME ONE Administration - Radiology Interpretation Free Text/Narrative:: Chest xray: PROCEDURE INFORMATION: Exam: XR Chest, 1 View Exam date and time: 03/24/2020 9:51 PM Age: 44 years old Clinical indication: Other: Asthma TECHNIQUE: Imaging protocol: XR of the chest Views: 1 view. COMPARISON: CR Chest 1V Frontal 12/04/2017 9:02 PM FINDINGS: Lungs: Aeration and architecture is normal, There is moderate, diffuse thickening of the bronchial alexandre. bronchi moderate Pleural space: The pleural surfaces are normal. There are no signs of effusion or pneumothorax. Heart/Mediastinum: The heart and mediastinum appear normal.. Bones/joints: Normal IMPRESSION: 1. Moderate airway disease, asthma versus bronchiolitis. 2. Remainder normal. Thank you for allowing us to participate in the care of your patient. Dictated and Authenticated by: Carlos Koenig MD 03/24/2020 10:00 PM Central Time ([place] & [place]) See rad report - Re-Assessments/Exams Free Text/Narrative Re-Assessment/Exam: 03/24/20 23:32 Discussed patient case with Dr. Beavers who agreed to accept the patient for inpatient admission. Departure - Departure Time of Disposition: 23:32 Disposition: Admitted As Inpatient 66 Condition: Fair Clinical Impression: Asthma with status asthmaticus Qualifiers: Asthma severity: severe persistent Qualified Code(s): J45.52 - Severe persistent asthma with status asthmaticus - Discharge Information *PRESCRIPTION DRUG MONITORING PROGRAM REVIEWED*: No *COPY OF PRESCRIPTION DRUG MONITORING REPORT IN PATIENT KAREEM: No Forms: ED Department Discharge Sepsis Event Note (ED) - Evaluation Sepsis Screening Result: No Definite Risk - Focused Exam Vital Signs: Vital Signs Temp Pulse Resp BP Pulse Ox 03/24/20 21:12 96.5 F L 144 H 28 H 130/96 H 94 L - My Orders Last 24 Hours: My Active Orders 03/24/20 21:13 Peripheral IV Insertion Adult [OM.PC] Stat 03/24/20 21:15 Sodium Chloride 0.9% [Saline Flush] 10 ml FLUSH ASDIRECTED PRN 03/24/20 21:16 Peripheral IV Care [RC] . DIRECTED RT Aerosol Therapy [RC] ASDIRECTED 03/24/20 21:42 EKG 12 Lead [EKG Documentation Completion] [RC] URGENT 03/24/20 22:23 RT Aerosol Therapy [RC] ASDIRECTED 03/24/20 23:33 Admission Diagnosis [ADT] Stat Admission Status [Patient Status] [ADT] Routine - Assessment/Plan Last 24 Hours: My Active Orders 03/24/20 21:13 Peripheral IV Insertion Adult [OM.PC] Stat 03/24/20 21:15 Sodium Chloride 0.9% [Saline Flush] 10 ml FLUSH ASDIRECTED PRN 03/24/20 21:16 Peripheral IV Care [RC] . DIRECTED RT Aerosol Therapy [RC] ASDIRECTED 03/24/20 21:42 EKG 12 Lead [EKG Documentation Completion] [RC] URGENT 03/24/20 22:23 RT Aerosol Therapy [RC] ASDIRECTED 03/24/20 23:33 Admission Diagnosis [ADT] Stat Admission Status [Patient Status] [ADT] Routine
--- NOTE | 2020-03-24 22:01 | CR ---
PROCEDURE INFORMATION: Exam: XR Chest, 1 View Exam date and time: 03/24/2020 9:51 PM Age: 44 years old Clinical indication: Other: Asthma TECHNIQUE: Imaging protocol: XR of the chest Views: 1 view. COMPARISON: CR Chest 1V Frontal 12/04/2017 9:02 PM FINDINGS: Lungs: Aeration and architecture is normal, There is moderate, diffuse thickening of the bronchial alexandre. bronchi moderate Pleural space: The pleural surfaces are normal. There are no signs of effusion or pneumothorax. Heart/Mediastinum: The heart and mediastinum appear normal.. Bones/joints: Normal IMPRESSION: 1. Moderate airway disease, asthma versus bronchiolitis. 2. Remainder normal.
[2020-03-25] MEDS ORDERED: Ondansetron 4 MG/2 ML SDV IVPUSH PRN (00:22)
[2020-03-25] MEDS ORDERED: Acetaminophen 325 MG Tab PO PRN (00:22)
[2020-03-25] MEDS ORDERED: Albuterol/Ipratropium 3.0-0.5 MG/3 ML Neb Soln NEB SCH ×2 (00:30→03:00)
--- NOTE | 2020-03-25 00:32 | PCM.HP ---
H&P History of Present Illness - General Date of Service: 03/25/20 Admit Problem/Dx: Admission Diagnosis/Problem Admission Diagnosis/Problem Asthma with status asthmaticus Source of Information: Patient History Limitations: Reports: No Limitations - History of Present Illness Initial Comments - Free Text/Narative: Jason is 44 y/o F with PMH of Asthma, illicit drug abuse (Methamphetamine, tobacco) who presented to ED for evaluation of respiratory distress. She reports SOB, wheezing , cough for 3 days. Above got worse today and decided to come to te ED. She used her nebs at home with no improvement. She denies fever, chills, chest pain. Cough is unproductive. No recent travel or ill contact. No leg swelling. In te ED vitals was unremarkable and was saturating well on air. She received neb treatment x 2 and also received Solu-Medrol with minimal improvement. Admission was requested for further management. Onset of Symptoms: Reports: Gradual Duration of Symptoms: Reports: Day(s): Location: Reports: Chest Quality: Reports: Ache Severity: Moderate Improves with: Reports: None Worsens with: Reports: None Associated Symptoms: Reports: No Other Symptoms, Cough, Shortness of Breath, Other (wheezing) - Related Data Allergies/Adverse Reactions: Allergies Allergy/AdvReac Type Severity Reaction Status Date / Time No Known Allergies Allergy Verified 03/24/20 23:53 Home Medications: Home Meds Albuterol [Proventil HFA] 6.7 gm INH Q6H 11/08/15 [History] Albuterol/Ipratropium [DuoNeb 3.0-0.5 MG/3 ML] 3 ml NEB Q4HRRT 11/08/15 [History] Fluticasone Propion/Salmeterol [Wixela 500-50 Inhub] 1 inh INH DAILY 02/20/20 [History] Past Medical History - Past Health History Medical/Surgical History: Denies Medical/Surgical History Respiratory History: Reports: Asthma [employer] History: Reports: Psychiatric History: Reports: Addiction Endocrine/Metabolic History: Reports: Hyperthyroidism - Past Surgical History Respiratory Surgical History: Reports: None Female Surgical History: Reports: Section, Hysterectomy Social & Family History - Family History Family Medical History: Noncontributory - Tobacco Use Smoking Status *Q: Never Smoker Second Hand Smoke Exposure: No - Caffeine Use Caffeine Use: Reports: Coffee, Energy Drinks, Soda, Tea - Recreational Drug Use Recreational Drug Use: Yes Recreational Drug Type: Reports: Methamphetamine Recreational Drug Use Frequency: Daily - Living Situation & Occupation Living situation: Reports: with Family Occupation: Unemployed H&P Review of Systems - Review of Systems: Review Of Systems: See Below General: Reports: Other (respiartory distress) HEENT: Reports: No Symptoms Pulmonary: Reports: Shortness of Breath, Wheezing, Cough Cardiovascular: Reports: No Symptoms, Palpitations Gastrointestinal: Reports: No Symptoms Genitourinary: Reports: No Symptoms Musculoskeletal: Reports: No Symptoms Skin: Reports: No Symptoms Psychiatric: Reports: No Symptoms Neurological: Reports: No Symptoms Hematologic/Lymphatic: Reports: No Symptoms Immunologic: Reports: No Symptoms Exam - Exam Exam: See Below - Vital Signs Vital Signs: Last Vital Signs Temp 96.5 F L 03/24/20 21:12 Pulse 144 H 03/24/20 21:12 Resp 28 H 03/24/20 21:12 BP 130/96 H 03/24/20 21:12 Pulse Ox 94 L 03/24/20 21:12 Weight: 165 lb - Exam Quality Assessment: DVT Prophylaxis General: Alert, Oriented, Cooperative HEENT: PERRLA, Hearing Intact, Mucosa Moist & [place], Nares Patent, Normal Nasal Septum, Posterior Pharynx Clear, Conjunctiva Clear, EOMI, EACs Clear, TMs Clear Neck: Supple, Trachea Midline, 2 Lungs: Decreased Breath Sounds, Wheezing Cardiovascular: Tachycardia GI/Abdominal Exam: Normal Bowel Sounds, Soft, Non-Tender, No Organomegaly, No Distention, No Abnormal Bruit, No Mass, Pelvis Stable (Female) Exam: Normal External Exam, Normal Speculum Exam, Normal Bimanual Exam Rectal (Female) Exam: Normal Exam, Normal Rectal Tone Back Exam: Normal Inspection, Full Range of Motion, NT Extremities: Normal Inspection, Normal Range of Motion, Non-Tender, No Pedal Edema, Normal Capillary Refill Skin: Warm, Dry, Intact Neurological: Cranial Nerves Intact, Reflexes Equal Bilateral Neuro Extensive - Mental Status: Alert, Oriented x3, Normal Mood/Affect, Normal Cognition Neuro Extensive - Motor, Sensory, Reflexes: CN II-XII Intact, Normal Gait, Normal Reflexes Psychiatric: Alert - Patient Data Lab Results Last 24 hrs: Laboratory Results - last 24 hr 06/25/20 06/25/20 06/25/20 Range/Units 21:30 21:30 21:30 WBC 12.6 H (5.0-10.0) 10^3/uL RBC 5.99 H (4.2-5.4) 10^6/uL Hgb 16.5 H D (12.0-16.0) g/dL Hct 48.3 H (37.0-47.0) % MCV 80.6 D (80-100) fL MCH 27.5 (27.0-34.0) pg MCHC 34.2 (33.0-35.0) g/dL Plt Count 461 H D (150-450) 10^3/uL Neut % (Auto) 68.7 (42.2-75.2) % Lymph % (Auto) 20.3 L (20.5-50.1) % [place] % (Auto) 5.8 (2-8) % Eos % (Auto) 5.0 H (1.0-3.0) % Baso % (Auto) 0.2 (0.0-1.0) % Sodium 139 (136-145) mmol/L Potassium 3.9 (3.5-5.1) mmol/L Chloride 103 (98-107) mmol/L Carbon Dioxide 26 (21-32) mmol/L Anion Gap 13.9 H (7-13) mEq/L BUN 7 (7-18) mg/dL Creatinine 0.82 (0.55-1.02) mg/dL Est Cr Clr Drug Dosing 69.24 mL/min Estimated GFR (MDRD) > 60 BUN/Creatinine Ratio 8.5 (No establ ref range) Glucose 158 H (74-99) mg/dL Lactic Acid 1.5 (0.4-2.0) mmol/L Calcium 9.1 (8.5-10.1) mg/dL Magnesium 1.9 (1.8-2.4) mg/dL Total Bilirubin 0.5 (0.2-1.0) mg/dL AST 21 (15-37) U/L ALT 35 (14-59) U/L Alkaline Phosphatase 120 H (46-116) U/L Total Protein 8.5 H (6.4-8.2) g/dL Albumin 3.3 L (3.4-5.0) g/dL Globulin 5.2 Albumin/Globulin Ratio 0.63 Result Diagrams: 03/25/20 05:50 03/25/20 05:50 - Problem List (1) Sepsis SNOMED Code(s): 72581839 ICD Code: A41.9 - SEPSIS, UNSPECIFIED ORGANISM Status: Acute Current Vi sit: Yes (2) Asthma exacerbation SNOMED Code(s): 900826810 ICD Code: J45.901 - UNSPECIFIED ASTHMA WITH (ACUTE) EXACERBATION Status: Acute Current Visit: No Qualifiers: Asthma severity: moderate Asthma persistence: persistent Qualified Code(s): J45.41 - Moderate persistent asthma with (acute) exacerbation (3) Elevated alkaline phosphatase level SNOMED Code(s): 158399752 ICD Code: R74.8 - ABNORMAL LEVELS OF OTHER SERUM ENZYMES Status: Acute Current Visit: Yes (4) Hyperglycemia SNOMED Code(s): 30919609 ICD Code: R73.9 - HYPERGLYCEMIA, UNSPECIFIED Status: Acute Current Visit: Yes Problem List Initiated/Reviewed/Updated: Yes Orders Last 24hrs: Active Orders 24 hr Category Date Time Status Admission Diagnosis [ADT] Stat ADT 03/24/20 23:33 Ordered Admission Status [Patient Status] [ADT] Routine ADT 03/24/20 23:33 Active EKG 12 Lead [EKG Documentation Completion] [RC] URGENT Care 03/24/20 21:42 Active Notify Provider Vital Signs [RC] ASDIRECTED Care 03/25/20 00:24 Ordered Oxygen Therapy [RC] PRN Care 03/25/20 00:22 Ordered Peripheral IV Care [RC] . DIRECTED Care 03/24/20 21:16 Active RT Aerosol Therapy [RC] ASDIRECTED Care 03/24/20 21:16 Active RT Aerosol Therapy [RC] ASDIRECTED Care 03/24/20 22:23 Active RT Aerosol Therapy [RC] ASDIRECTED Care 03/25/20 00:22 Active RT Aerosol Therapy [RC] ASDIRECTED Care 03/25/20 00:27 Ordered Up ad Amy [RC] ASDIRECTED Care 03/25/20 00:22 Ordered VTE/DVT Education [RC] PER UNIT ROUTINE Care 03/25/20 00:22 Ordered Vital Signs [RC] Q4H Care 03/25/20 00:22 Ordered Regular Diet [DIET] Diet 03/25/20 Breakfast Ordered BASIC METABOLIC PANEL,BMP [CHEM] DAILY Lab 03/25/20 07:00 Ordered BASIC METABOLIC PANEL,BMP [CHEM] DAILY Lab 03/26/20 07:00 Ordered CBC W/O DIFF,HEMOGRAM [HEME] DAILY Lab 03/25/20 07:00 Ordered CBC W/O DIFF,HEMOGRAM [HEME] DAILY Lab 03/26/20 07:00 Ordered MAGNESIUM [CHEM] Routine Lab 03/25/20 00:22 Ordered PHOSPHORUS [CHEM] Routine Lab 03/25/20 00:22 Ordered Acetaminophen [Tylenol] Med 03/25/20 00:22 Ordered 650 mg PO Q4H PRN Albuterol/Ipratropium [DuoNeb 3.0-0.5 MG/3 ML] Med 03/25/20 00:30 Ordered 3 ml NEB Q4H Albuterol/Ipratropium [DuoNeb 3.0-0.5 MG/3 ML] Med 03/25/20 03:00 Ordered 3 ml NEB Q4HRRT Azithromycin [Zithromax] 500 mg Med 03/25/20 00:30 Ordered Sodium Chloride 0.9% [Normal Saline (AdvBag)] 250 ml IV Q24H Heparin Sodium Med 03/25/20 09:00 Ordered 5,000 units SUBCUT Q12HR Lactated Ringers [Ringers, Lactated] 1,000 ml Med 03/25/20 00:30 Ordered IV ASDIRECTED Ondansetron [Zofran] Med 03/25/20 00:22 Ordered 4 mg IVPUSH Q6H PRN Sodium Chloride 0.9% [Saline Flush] Med 03/24/20 21:15 Active 10 ml FLUSH ASDIRECTED PRN methylPREDNISolone Sod Succ [Solu-MEDROL] Med 03/25/20 03:30 Ordered 40 mg IVPUSH Q8H Peripheral IV Insertion Adult [OM.PC] Stat Oth 03/24/20 21:13 Ordered Resuscitation Status Routine Resus Stat 03/25/20 00:22 Ordered Medication Orders Acetaminophen (Tylenol) 650 mg PO Q4H PRN PRN Reason: Pain (Mild 1-3)/fever Albuterol/Ipratropium (Duoneb 3.0-0.5 Mg/3 Ml) 3 ml NEB Q4HRRT [place] Albuterol/Ipratropium (Duoneb 3.0-0.5 Mg/3 Ml) 3 ml NEB Q4H [place] Heparin Sodium (Porcine) (Heparin Sodium) 5,000 units SUBCUT Q12HR [place] Lactated Ringer's (Ringers, Lactated) 1,000 mls @ 75 mls/hr IV ASDIRECTED [place] Ondansetron HCl (Zofran) 4 mg IVPUSH Q6H PRN PRN Reason: Nausea/Vomiting Sodium Chloride (Saline Flush) 10 ml FLUSH ASDIRECTED PRN PRN Reason: Keep Vein Open Last Admin: 03/24/20 21:29 Dose: 10 ml Documented by: LUZMA Assessment/Plan Comment:: #Acute asthma exacerbation -Admit to medical floor -Duo-Nebs q4h -Solumedrol 40 mg q8h -Supplemental oxygen as needed -Azithromycin #Probable sepsis -Evidence by tachycardia, tachypnea, leukocytosis, possible PNA -IVF -Azithromycin #Hyperglycemia -A1c -Monitor serum glucose #Illicit drug abuse -Patient counselled to quit -She says she has quit using tobacco #Elevated Alk phos -GGT -Monitor -RUQ #General diet #Full code
[2020-03-25] MEDS: Lactated Ringers 1,000 ML IV SCH ×2 (00:56→15:14)
[2020-03-25] MEDS: Azithromycin 500 MG in Sodium Chloride 0.9% 250 ML IV SCH (00:58)
[2020-03-25] MEDS: Albuterol/Ipratropium 3.0-0.5 MG/3 ML Neb Soln NEB SCH ×7 (01:49→22:45)
[2020-03-25] MEDS: Pantoprazole 40 MG Tab.CR PO SCH ×2 (01:49→06:08)
[2020-03-25] MEDS: methylPREDNISolone Sodium Succinate 40 MG/1 ML SDV IVPUSH SCH ×3 (04:40→20:12)
[2020-03-25] MEDS: Heparin Sodium 5,000 Units/ML Vial SUBCUT SCH ×3 (06:09→22:45)
[2020-03-25 07:00] LABS: ANION GAP 13.6 mEq/L (7-13); CHLORIDE,CL 106 mmol/L (98-107); SODIUM,NA 137 mmol/L (136-145)
[2020-03-25] MEDS ORDERED: Sodium Chloride 0.9% 10 ML Syringe FLUSH PRN (08:17)
[2020-03-25 11:14] LABS: HEMOGLOBIN A1C 6.2 % (<5.7)
[2020-03-25] MEDS ORDERED: guaiFENesin 100 MG/5 ML Soln 5 ML UD Cup PO PRN (17:07)
--- NOTE | 2020-03-25 18:40 | US ---
EXAMINATION: Abdomen Ltd SEX: Female AGE: 44 years CLINICAL HISTORY: 44-year-old female with elevated serum alkaline phosphatase. Interpretation: 1. Gallbladder contracted but clearly demonstrated in the right upper quadrant beneath the liver margin. Normal size and anatomic configuration gallbladder with uniformly thin wall. No sign of pericystic fluid, intraluminal mucosal wall polyp or mobile dependent intraluminal echogenic "shadowing" gallstones. Note: Discrete punctate echogenicity with distinct backwall "shadowing" repeatedly demonstrated in the region of the mariela hepatis (RUQ) i.e. cannot exclude tiny ductal stone. Suggest unenhanced CT scan. 2. Homogeneous normal sonodensity of the liver and no sign of discrete intrahepatic mass lesion or intra/extrahepatic biliary duct dilatation. Common hepatic duct measures 5 mm and the common bile duct measures 6 mm diameter. 3. Head of pancreas obscured by gas (body and tail unremarkable). No ascites. 4. Right kidney unremarkable. No sign of obstructive uropathy. CONCLUSION: Subtle observation (calcification?) RUQ. See above. Unenhanced CT suggested. Nonvisualization head of pancreas. Ultrasound otherwise unremarkable.
[2020-03-26] MEDS: Azithromycin 500 MG in Sodium Chloride 0.9% 250 ML IV SCH (00:58)
[2020-03-26] MEDS: Albuterol/Ipratropium 3.0-0.5 MG/3 ML Neb Soln NEB SCH ×3 (03:42→11:55)
[2020-03-26] MEDS: methylPREDNISolone Sodium Succinate 40 MG/1 ML SDV IVPUSH SCH ×2 (03:42→11:45)
[2020-03-26] MEDS: Heparin Sodium 5,000 Units/ML Vial SUBCUT SCH (06:37)
[2020-03-26] MEDS: Pantoprazole 40 MG Tab.CR PO SCH (06:38)
[2020-03-26 07:02] LABS: CHLORIDE,CL 105 mmol/L (98-107); SODIUM,NA 138 mmol/L (136-145)
[2020-03-26 07:30] VITALS: PULSE 108
[2020-03-26 08:08] VITALS: BP 117/56
--- NOTE | 2020-03-26 10:49 | PCM.DCSUM1 ---
Discharge Summary - Hospital Course Free Text/Narrative:: Jason is 44 y/o F with PMH of Asthma, illicit drug abuse (Methamphetamine, tobacco) who presented to te ED for evaluation of respiratory distress. She reports SOB, wheezing , cough for 3 days. She was admitted for acute asthma exacerbation. She received nebulizer treatment, IV Azithromycin and also IV Solumedrol with significant improvement. She had RUQ US for elevated Alk Phos probably due to alcohol abuse. Her GGT was elevated. RUQ US suggested subtle observation with questionable calcified gall bladder and recommended unenhanced CT. Otherwise it was unremarkable findings. Her A1c was noted to be 6.2. Patient says she is not diabetic. She was discharged in stable condition with plan to follow up with PCP. She was discharged on metformin. Patient was advised to quit abusing illicit drug and she verbalized understanding. She said she has quit using tobacco. Her wbc was noted to be elevated today. This is probably due to steroid use. Recommend repeat cbc during follow up with pcp. Diagnosis: Stroke: No - Discharge Data Discharge Date: 03/26/20 Discharge Disposition: Home, Self-Care 01 Condition: Stable - Referral to Home Health Primary Care Physician: Emy Maza MD - Discharge Diagnosis/Problem(s) (1) Sepsis SNOMED Code(s): 25809402 ICD Code: A41.9 - SEPSIS, UNSPECIFIED ORGANISM Status: Acute Current Visit: Yes (2) Asthma exacerbation SNOMED Code(s): 970808109 ICD Code: J45.901 - UNSPECIFIED ASTHMA WITH (ACUTE) EXACERBATION Status: Acute Current Visit: No Qualifiers: Asthma severity: moderate Asthma persistence: persistent Qualified Co de(s): J45.41 - Moderate persistent asthma with (acute) exacerbation (3) Elevated alkaline phosphatase level SNOMED Code(s): 506050249 ICD Code: R74.8 - ABNORMAL LEVELS OF OTHER SERUM ENZYMES Status: Acute Current Visit: Yes (4) Hyperglycemia SNOMED Code(s): 15428810 ICD Code: R73.9 - HYPERGLYCEMIA, UNSPECIFIED Status: Acute Current Visit: Yes (5) Leukocytosis SNOMED Code(s): 524033177, 436963114 ICD Code: D72.829 - ELEVATED WHITE BLOOD CELL COUNT, UNSPECIFIED Status: Acute Current Visit: Yes (6) Type 2 diabetes mellitus SNOMED Code(s): 97275953 ICD Code: E11.9 - TYPE 2 DIABETES MELLITUS WITHOUT COMPLICATIONS Status: Acute Current Visit: Yes - Patient Instructions Diet: Diabetic Diet Activity: As Tolerated Driving: May Drive Today Showering/Bathing: May Shower Notify Provider of: Fever, Increased Pain, Nausea and/or Vomiting - Discharge Plan *PRESCRIPTION DRUG MONITORING PROGRAM REVIEWED*: No *COPY OF PRESCRIPTION DRUG MONITORING REPORT IN PATIENT KAREEM: No Prescriptions/Med Rec: Azithromycin 250 mg PO DAILY #4 tablet metFORMIN [Glucophage XR] 500 mg PO BIDMEALS 30 Days #60 tab.er predniSONE 40 mg PO WITHBREAKFAST #5 tab Pantoprazole [ProTONIX] 40 mg PO ACBREAKFAST #10 tab.cr guaiFENesin [Robitussin] 100 mg PO Q6H PRN #1 cup PRN Reason: Cough Home Medications: Home Meds Albuterol [Proventil HFA] 6.7 gm INH Q6H 11/08/15 [History] Albuterol/Ipratropium [DuoNeb 3.0-0.5 MG/3 ML] 3 ml NEB Q4HRRT 11/08/15 [Histo ry] Fluticasone Propion/Salmeterol [[place]ela 500-50 Inhub] 1 inh INH DAILY 02/20/20 [History] Azithromycin 250 mg PO DAILY #4 tablet 03/26/20 [Rx] Pantoprazole [ProTONIX] 40 mg PO ACBREAKFAST #10 tab.cr 03/26/20 [Rx] guaiFENesin [Robitussin] 100 mg PO Q6H PRN #1 cup 03/26/20 [Rx] metFORMIN [Glucophage XR] 500 mg PO BIDMEALS 30 Days #60 tab.er 03/26/20 [Rx] predniSONE 40 mg PO WITHBREAKFAST #5 tab 03/26/20 [Rx] Oxygen Therapy Mode: Room Air Referrals: PCP,None [Ordering Only Provider] - - Discharge Summary/Plan Comment DC Time >30 min.: Yes - General Info Date of Service: 03/26/20 Admission Dx/Problem (Free Text: Admission Diagnosis/Problem Admission Diagnosis/Problem Acute Asthma exacerbation Functional Status: Reports: Pain Controlled - Review of Systems General: Reports: No Symptoms HEENT: Reports: No Symptoms Pulmonary: Reports: No Symptoms Cardiovascular: Reports: No Symptoms Gastrointestinal: Reports: No Symptoms Genitourinary: Reports: No Symptoms Musculoskeletal: Reports: No Symptoms Skin: Reports: No Symptoms Neurological: Reports: No Symptoms Psychiatric: Reports: No Symptoms - Patient Data Vitals - Most Recent: Last Vital Signs Temp 97.8 F 03/26/20 08:00 Pulse 108 H 03/26/20 08:00 Resp 18 03/26/20 08:00 BP 117/56 L 03/26/20 08:00 Pulse Ox 95 03/26/20 08:00 Weight - Most Recent: 165 lb I&O - Last 24 hours: Intake & Output 03/25/20 03/26/20 03/26/20 22:59 06:59 14:59 Intake Total 580 993 560 Balance 580 993 560 Lab Results - Last 24 hrs: Laboratory Results - last 24 hr 03/25/20 03/25/20 03/26/20 Range/Units 05:50 05:50 05:50 WBC 16.6 H (5.0-10.0) 10^3/uL RBC 4.86 (4.2-5.4) 10^6/uL Hgb 13.5 (12.0-16.0) g/dL Hct 39.8 (37.0-47.0) % MCV 81.9 (80-100) fL MCH 27.8 (27.0-34.0) pg MCHC 33.9 (33.0-35.0) g/dL Plt Count 424 (150-450) 10^3/uL Sodium (136-145) mmol/L Potassium (3.5-5.1) mmol/L Chloride (98-107) mmol/L Carbon Dioxide (21-32) mmol/L Anion Gap (7-13) mEq/L BUN (7-18) mg/dL Creatinine (0.55-1.02) mg/dL Est Cr Clr Drug Dosing mL/min Estimated GFR (MDRD) Glucose (74-99) mg/dL Hemoglobin A1c 6.2 H (<5.7) % Calcium (8.5-10.1) mg/dL GGT 115 H (5-55) U/L 03/26/20 Range/Units 05:50 WBC (5.0-10.0) 10^3/uL RBC (4.2-5.4) 10^6/uL Hgb (12.0-16.0) g/dL Hct (37.0-47.0) % MCV (80-100) fL MCH (27.0-34.0) pg MCHC (33.0-35.0) g/dL Plt Count (150-450) 10^3/uL Sodium 138 (136-145) mmol/L Potassium 4.0 (3.5-5.1) mmol/L Chloride 105 (98-107) mmol/L Carbon Dioxide 23 (21-32) mmol/L Anion Gap 14.0 H (7-13) mEq/L BUN 8 (7-18) mg/dL Creatinine 0.70 (0.55-1.02) mg/dL Est Cr Clr Drug Dosing 81.11 mL/min Estimated GFR (MDRD) > 60 Glucose 168 H (74-99) mg/dL Hemoglobin A1c (<5.7) % Calcium 8.8 (8.5-10.1) mg/dL GGT (5-55) U/L Med Orders - Current: Current Medications Acetaminophen (Tylenol) 650 mg PO Q4H PRN PRN Reason: Pain (Mild 1-3)/fever Last Admin: 03/25/20 18:18 Dose: 650 mg Documented by: Albuterol/Ipratropium (Duoneb 3.0-0.5 Mg/3 Ml) 3 ml NEB Q4HRRT [facility] Last Admin: 03/26/20 07:27 Dose: 3 ml Documented by: Guaifenesin (Robitussin) 100 mg PO Q6H PRN PRN Reason: Cough Heparin Sodium (Porcine) (Heparin Sodium) 5,000 units SUBCUT Q8HR [facility] Last Admin: 03/26/20 06:37 Dose: 5,000 units Documented by: Azithromycin 500 mg/ Sodium (Chloride) 250 mls @ 250 mls/hr IV Q24H [facility] Last Admin: 03/26/20 00:58 Dose: 250 mls/hr Documented by: Methylprednisolone Sodium Succinate (Solu-Medrol) 40 mg IVPUSH Q8H [facility] Last Admin: 03/26/20 03:42 Dose: 40 mg Documented by: Ondansetron HCl (Zofran) 4 mg IVPUSH Q6H PRN PRN Reason: Nausea/Vomiting Pantoprazole Sodium (Protonix) 40 mg PO ACBREAKFAST [facility] Last Admin: 03/26/20 06:38 Dose: 40 mg Documented by: Sodium Chloride (Saline Flush) 10 ml FLUSH ASDIRECTED PRN PRN Reason: Keep Vein Open Discontinued Medications Albuterol/Ipratropium (Duoneb 3.0-0.5 Mg/3 Ml) 3 ml NEB ONETIME ONE Stop: 03/24/20 21:16 Last Admin: 03/24/20 21:14 Dose: 3 ml Documented by: Albuterol/Ipratropium (Duoneb 3.0-0.5 Mg/3 Ml) Confirm Administered Dose 3 ml .ROUTE .STK-MED ONE Stop: 03/24/20 21:14 Last Admin: 03/24/20 21:20 Dose: Not Given Documented by: Albuterol/Ipratropium (Duoneb 3.0-0.5 Mg/3 Ml) 3 ml NEB ONETIME ONE Stop: 03/24/20 22:24 Last Admin: 03/24/20 22:27 Dose: 3 ml Documented by: Albuterol/Ipratropium (Duoneb 3.0-0.5 Mg/3 Ml) 3 ml NEB Q4HRRT [facility] Albuterol/Ipratropium (Duoneb 3.0-0.5 Mg/3 Ml) 3 ml NEB Q4H [facility] Last Admin: 03/25/20 02:59 Dose: Not Given Documented by: Sodium Chloride (Normal Saline) 1,000 mls @ 999 mls/hr IV .BOLUS ONE Stop: 03/24/20 22:15 Last Admin: 03/24/20 21:29 Dose: 999 mls/hr Documented by: Magnesium Sulfate/Dextrose 2 (gm/ Premix) 200 mls @ 100 mls/hr IV ONETIME ONE Stop: 03/24/20 23:14 Last Admin: 03/24/20 21:38 Dose: 100 mls/hr Documented by: Sodium Chloride (Normal Saline) 1,000 mls @ 999 mls/hr IV .BOLUS ONE Stop: 03/24/20 23:25 Last Infusion: 03/24/20 23:58 Dose: Infused Documented by: Lactated Ringer's (Ringers, Lactated) 1,000 mls @ 75 mls/hr IV ASDIRECTED [facility] Last Admin: 06/26/20 15:14 Dose: 75 mls/hr Documented by: Methylprednisolone Sodium Succinate (Solu-Medrol) 125 mg IVPUSH ONETIME ONE Stop: 03/24/20 21:17 Last Admin: 03/24/20 21:32 Dose: 125 mg Documented by: Sodium Chloride (Saline Flush) 10 ml FLUSH ASDIRECTED PRN PRN Reason: Keep Vein Open Last Admin: 03/24/20 21:29 Dose: 10 ml Documented by: - Exam General: Reports: Alert, Oriented HEENT: Reports: Pupils Equal, Pupils Reactive, EOMI, Mucous Membr. Moist/[place] Neck: Reports: Supple Lungs: Reports: Clear to Auscultation, Normal Respiratory Effort Cardiovascular: Reports: Regular Rate, Regular Rhythm GI/Abdominal Exam: Normal Bowel Sounds, Soft, Non-Tender, No Organomegaly, No Distention, No Abnormal Bruit, No Mass, Pelvis Stable (Female) Exam: Normal External Exam, Normal Speculum Exam, Normal Bimanual Exam Rectal (Female) Exam: Normal Exam, Normal Rectal Tone Back Exam: Reports: Normal Inspection, Full Range of Motion Extremities: Normal Inspection, Normal Range of Motion, Non-Tender, No Pedal Edema, Normal Capillary Refill Skin: Reports: Warm, Dry, Intact Wound/Incisions: Reports: Healing Well Neurological: Reports: No New Focal Deficit Psy/Mental Status: Reports: Alert, Normal Affect, Normal Mood
--- NOTE | 2020-03-29 10:35 | PCM.PN ---
- General Info Date of Service: 03/25/20 Admission Dx/Problem (Free Text): Admission Diagnosis/Problem Admission Diagnosis/Problem Acute Asthma exacerbation Subjective Update: Patient seen and examined. Doing ok. SOB improving. Functional Status: Reports: Pain Controlled - Review of Systems General: Reports: No Symptoms HEENT: Reports: No Symptoms Pulmonary: Reports: No Symptoms Cardiovascular: Reports: No Symptoms Gastrointestinal: Reports: No Symptoms Genitourinary: Reports: No Symptoms Musculoskeletal: Reports: No Symptoms Skin: Reports: No Symptoms Neurological: Reports: No Symptoms Psychiatric: Reports: No Symptoms - Patient Data Vitals - Most Recent: Last Vital Signs Temp 97.8 F 03/26/20 08:00 Pulse 108 H 03/26/20 08:00 Resp 18 03/26/20 08:00 BP 117/56 L 03/26/20 08:00 Pulse Ox 95 03/26/20 11:55 Weight - Most Recent: 165 lb Med Orders - Current: Current Medications Discontinued Medications Acetaminophen (Tylenol) 650 mg PO Q4H PRN PRN Reason: Pain (Mild 1-3)/fever Last Admin: 03/25/20 18:18 Dose: 650 mg Documented by: Albuterol/Ipratropium (Duoneb 3.0-0.5 Mg/3 Ml) 3 ml NEB ONETIME ONE Stop: 03/24/20 21:16 Last Admin: 03/24/20 21:14 Dose: 3 ml Documented by: Albuterol/Ipratropium (Duoneb 3.0-0.5 Mg/3 Ml) Confirm Administered Dose 3 ml .ROUTE .STK-MED ONE Stop: 03/24/20 21:14 Last Admin: 03/24/20 21:20 Dose: Not Given Documented by: Albuterol/Ipratropium (Duoneb 3.0-0.5 Mg/3 Ml) 3 ml NEB ONETIME ONE Stop: 03/24/20 22:24 Last Admin: 03/24/20 22:27 Dose: 3 ml Documented by: Albuterol/Ipratropium (Duoneb 3.0-0.5 Mg/3 Ml) 3 ml NEB Q4HRRT [facility] Albuterol/Ipratropium (Duoneb 3.0-0.5 Mg/3 Ml) 3 ml NEB Q4H [facility] Last Admin: 03/25/20 02:59 Dose: Not Given Documented by: Albuterol/Ipratropium (Duoneb 3.0-0.5 Mg/3 Ml) 3 ml NEB Q4HRRT [facility] Last Admin: 03/26/20 11:55 Dose: 3 ml Documented by: Guaifenesin (Robitussin) 100 mg PO Q6H PRN PRN Reason: Cough Heparin Sodium (Porcine) (Heparin Sodium) 5,000 units SUBCUT Q8HR [facility] Last Admin: 03/26/20 06:37 Dose: 5,000 units Documented by: Sodium Chloride (Normal Saline) 1,000 mls @ 999 mls/hr IV .BOLUS ONE Stop: 03/24/20 22:15 Last Admin: 03/24/20 21:29 Dose: 999 mls/hr Documented by: Magnesium Sulfate/Dextrose 2 (gm/ Premix) 200 mls @ 100 mls/hr IV ONETIME ONE Stop: 03/24/20 23:14 Last Admin: 03/24/20 21:38 Dose: 100 mls/hr Documented by: Sodium Chloride (Normal Saline) 1,000 mls @ 999 mls/hr IV .BOLUS ONE Stop: 03/24/20 23:25 Last Infusion: 03/24/20 23:58 Dose: Infused Documented by: Lactated Ringer's (Ringers, Lactated) 1,000 mls @ 75 mls/hr IV ASDIRECTED [facility] Last Admin: 03/25/20 15:14 Dose: 75 mls/hr Documented by: Azithromycin 500 mg/ Sodium (Chloride) 250 mls @ 250 mls/hr IV Q24H [facility] Last Admin: 03/26/20 00:58 Dose: 250 mls/hr Documented by: Methylprednisolone Sodium Succinate (Solu-Medrol) 125 mg IVPUSH ONETIME ONE Stop: 03/24/20 21:17 Last Admin: 03/24/20 21:32 Dose: 125 mg Documented by: Methylprednisolone Sodium Succinate (Solu-Medrol) 40 mg IVPUSH Q8H [facility] Last Admin: 03/26/20 11:45 Dose: Not Given Documented by: Ondansetron HCl (Zofran) 4 mg IVPUSH Q6H PRN PRN Reason: Nausea/Vomiting Pantoprazole Sodium (Protonix) 40 mg PO ACBREAKFAST [facility] Last Admin: 03/26/20 06:38 Dose: 40 mg Documented by: Sodium Chloride (Saline Flush) 10 ml FLUSH ASDIRECTED PRN PRN Reason: Keep Vein Open Last Admin: 03/24/20 21:29 Dose: 10 ml Documented by: Sodium Chloride (Saline Flush) 10 ml FLUSH ASDIRECTED PRN PRN Reason: Keep Vein Open - Exam Quality Assessment: DVT Prophylaxis General: Alert, Oriented HEENT: Pupils Equal, Pupils Reactive, EOMI, Mucous Membr. Moist/[place] Neck: Supple Lungs: Clear to Auscultation, Normal Respiratory Effort Cardiovascular: Regular Rate, Regular Rhythm GI/Abdominal Exam: Normal Bowel Sounds, Soft, Non-Tender, No Organomegaly, No Distention, No Abnormal Bruit, No Mass, Pelvis Stable (Female) Exam: Normal External Exam, Normal Speculum Exam, Normal Bimanual Exam Back Exam: Normal Inspection, Full Range of Motion Extremities: Normal Inspection, Normal Range of Motion, Non-Tender, No Pedal Edema, Normal Capillary Refill Skin: Warm, Dry, Intact Wound/Incisions: Healing Well Neurological: No New Focal Deficit Psy/Mental Status: Alert, Normal Affect, Normal Mood Sepsis Event Note - Evaluation Sepsis Screening Result: No Definite Risk - Focused Exam Date Exam was Performed: 03/29/20 Time Exam was Performed: 10:33 - Problem List & Annotations (1) Sepsis SNOMED Code(s): 14244842 Code(s): A41.9 - SEPSIS, UNSPECIFIED ORGANISM Status: Acute (2) Asthma exacerbation SNOMED Code(s): 007287578 Code(s): J45.901 - UNSPECIFIED ASTHMA WITH (ACUTE) EXACERBATION Status: Acute Qualifiers: Asthma severity: moderate Asthma persistence: persistent Qualified Code(s): J45.41 - Moderate persistent asthma with (acute) exacerbation (3) Elevated alkaline phosphatase level SNOMED Code(s): 870572075 Code(s): R74.8 - ABNORMAL LEVELS OF OTHER SERUM ENZYMES Status: Acute (4) Hyperglycemia SNOMED Code(s): 25711215 Code(s): R73.9 - HYPERGLYCEMIA, UNSPECIFIED Status: Acute (5) Leukocytosis SNOMED Code(s): 819327885, 481987922 Code(s): D72.829 - ELEVATED WHITE BLOOD CELL COUNT, UNSPECIFIED Status: Acute (6) Type 2 diabetes mellitus SNOMED Code(s): 26373433 Code(s): E11.9 - TYPE 2 DIABETES MELLITUS WITHOUT COMPLICATIONS Status: Acute - Problem List Review Problem List Initiated/Reviewed/Updated: Yes - Plan Plan:: #Acute asthma exacerbation -Duo-Nebs q4h -Solumedrol 40 mg q8h -Supplemental oxygen as needed -Azithromycin #Probable sepsis due to possible pneumonia -IVF -Azithromycin #Hyperglycemia -A1c -Monitor serum glucose #Illicit drug abuse -Patient counselled to quit -She says she has quit using tobacco #Elevated Alk phos -GGT -Monitor -RUQ #General diet #Full code
== END 2020-03-26 12:05 | disposition home or self-care (01) | DRG 871 ==
LOC: DL.ED 21:10 → DL.MS 23:33
PROVIDERS: ADMIT Student in an Organized Health Care Education/Training Program; ATTEND Student in an Organized Health Care Education/Training Program
DX: J45.52 Severe persistent asthma with status asthmaticus (principal); A41.9 Sepsis, unspecified organism; J18.9 Pneumonia, unspecified organism; J45.41 Moderate persistent asthma with (acute) exacerbation; F10.10 Alcohol abuse, uncomplicated; F15.10 Other stimulant abuse, uncomplicated; E11.65 Type 2 diabetes mellitus with hyperglycemia; E05.90 Thyrotoxicosis, unspecified without thyrotoxic crisis or storm; Z79.899 Other long term (current) drug therapy; Z90.710 Acquired absence of both cervix and uterus; Z71.6 Tobacco abuse counseling
CPT/HCPCS: 36415; 71045; 80053; 83605; 83735 ×2; 84100; 85025; 93005; 96365; 96366; 96375; 99285; J2930; J3475; J7030 ×2; 76705; 80048; 82977; 83036; 85027; 94640; A9270-GY; J0456; J1644; J2920; J7050; J7120; J7620-GY

== ENCOUNTER 2020-04-20 00:26 | Emergency (ER) | payer MEDICAID, OTHER ==
[2020-04-20] MEDS ORDERED: Rocuronium 100 MG/10 ML MDV IV ONE (00:27)
[2020-04-20] MEDS ORDERED: Succinylcholine 200 MG/10 ML MDV IV ONE (00:27)
[2020-04-20] MEDS ORDERED: Propofol 1,000 MG/100 ML SDV IV ONE (00:27)
[2020-04-20] MEDS ORDERED: Propofol 200 MG/20 ML SDV IV ONE (00:27)
[2020-04-20] MEDS ORDERED: LORazepam 2 MG/ML SDV IVPUSH ONE ×2 (00:28→01:04)
[2020-04-20] MEDS ORDERED: Albuterol 0.083% 2.5 MG/3 ML Neb Soln NEB ONE (00:28)
[2020-04-20] MEDS ORDERED: Magnesium Sulfate/D5W 2 GM in Premix Bag 1 BAG IV ONE (00:30)
[2020-04-20] MEDS ORDERED: LORazepam 2 MG/ML SDV ONE (01:03)
[2020-04-20 01:17] LABS: ANION GAP 15.5 mEq/L (7-13); CHLORIDE,CL 101 mmol/L (98-107); SODIUM,NA 139 mmol/L (136-145)
[2020-04-20] MEDS ORDERED: Racepinephrine 2.25% 0.5 ML Neb Soln NEB ONE ×2 (01:21→02:04)
[2020-04-20] MEDS: Sodium Chloride 0.9% 1,000 ML IV SCH ×2 (01:45→03:09)
--- NOTE | 2020-04-20 02:04 | EDM.PDOC ---
ED HPI GENERAL MEDICAL PROBLEM - General Chief Complaint: Respiratory Problem Stated Complaint: AMBULANCE Time Seen by Provider: 04/20/20 00:30 Source of Information: Reports: Patient History Limitations: Reports: No Limitations - History of Present Illness INITIAL COMMENTS - FREE TEXT/NARRATIVE: ED via [facility] with report of difficulty breathing, started tonight. patient admitted to use of meth with sister. Hx asthma, use of duo nebs x3 at home prior to EMS. Solu medrol enroute and albuterol x 2. Denied recent fever or chills Denied any known exposure to COVID. Bilateral wheezing throughout, anxious HR 140's , talking 1-2 word responses. Treatments MOLDER VACUUM: Reports: Breathing Treatments, IV/IO - Related Data Allergies Allergy/AdvReac Type Severity Reaction Status Date / Time No Known Allergies Allergy Verified 04/20/20 00:56 Home Meds: Home Meds Albuterol [Proventil HFA] 6.7 gm INH Q6H 11/08/15 [History] Albuterol/Ipratropium [DuoNeb 3.0-0.5 MG/3 ML] 3 ml NEB Q4HRRT 11/08/15 [History] Fluticasone Propion/Salmeterol [Wixela 500-50 Inhub] 1 inh INH DAILY 02/20/20 [History] Azithromycin 250 mg PO DAILY #4 tablet 03/26/20 [Rx] Pantoprazole [ProTONIX] 40 mg PO ACBREAKFAST #10 tab.cr 03/26/20 [Rx] guaiFENesin [Robitussin] 100 mg PO Q6H PRN #1 cup 03/26/20 [Rx] metFORMIN [Glucophage XR] 500 mg PO BIDMEALS 30 Days #60 tab.er 03/26/20 [Rx] predniSONE 40 mg PO WITHBREAKFAST #5 tab 03/26/20 [Rx] Past Medical History - Past Health History Medical/Surgical History: Denies Medical/Surgical History Respiratory History: Reports: Asthma Psychiatric History: Reports: Addiction Endocrine/Metabolic History: Reports: Hyperthyroidism - Past Surgical History Female Surgical History: Reports: Section, Hysterectomy Social & Family History - Family History Family Medical History: Unobtainable - Tobacco Use Smoking Status *Q: Current Status Unknown - Caffeine Use Caffeine Use: Reports: None - Recreational Drug Use Recreational Drug Use: No - Living Situation & Occupation Living situation: Reports: with Family Occupation: Unemployed ED ROS GENERAL - Review of Systems Review Of Systems: See Below Constitutional: Denies: Fever, Chills, Malaise, Weakness HEENT: Reports: No Symptoms Respiratory: Reports: Shortness of Breath, Wheezing, Cough. Denies: Sputum Cardiovascular: Reports: No Symptoms GI/Abdominal: Reports: No Symptoms Musculoskeletal: Reports: No Symptoms Skin: Reports: No Symptoms Neurological: Reports: No Symptoms ED EXAM, GENERAL - Physical Exam Exam: See Below Exam Limited By: No Limitations General Appearance: Alert, Moderate Distress Eye Exam: Bilateral Eye: EOMI Ears: Normal External Exam Nose: Normal Inspection Throat/Mouth: Normal Inspection Head: Atraumatic, Normocephalic Neck: Normal Inspection Respiratory/Chest: Decreased Breath Sounds, Wheezing. No: Normal Breath Sounds Cardiovascular: Normal Peripheral Pulses, Tachycardia GI/Abdominal: Normal Bowel Sounds Back Exam: Normal Inspection Neurological: Alert, Oriented Psychiatric: Anxious Skin Exam: Warm, Dry, Intact Course - Vital Signs Last Recorded V/S: Last Vital Signs Temp 97.4 F 04/20/20 02:19 Pulse 127 H 04/20/20 02:19 Resp 24 H 04/20/20 02:19 BP 149/75 H 04/20/20 02:19 Pulse Ox 100 04/20/20 02:19 - Orders/Labs/Meds Orders: Active Orders 24 hr Category Date Time Status RT Aerosol Therapy [RC] ASDIRECTED Care 04/20/20 00:30 Active RT Aerosol Therapy [RC] ASDIRECTED Care 04/20/20 01:21 Active RT Aerosol Therapy [RC] ASDIRECTED Care 04/20/20 02:04 Active ABG [BLOOD GAS ARTERIAL] [BG] Stat Lab 04/20/20 01:04 Ordered CULTURE BLOOD [BC] Stat Lab 04/20/20 00:48 Results CULTURE BLOOD [BC] Stat Lab 04/20/20 01:48 Received Blood Culture x2 Reflex Set [OM.PC] Stat Oth 04/20/20 00:27 Ordered Labs: Laboratory Tests 04/20/20 04/20/20 04/20/20 Range/Units 00:40 00:48 00:48 WBC 13.5 H (5.0-10.0) 10^3/uL RBC 5.44 H (4.2-5.4) 10^6/uL Hgb 14.9 (12.0-16.0) g/dL Hct 44.1 (37.0-47.0) % MCV 81.1 (80-100) fL MCH 27.4 (27.0-34.0) pg MCHC 33.8 (33.0-35.0) g/dL Plt Count 400 (150-450) 10^3/uL Neut % (Auto) 59.8 (42.2-75.2) % Lymph % (Auto) 23.3 (20.5-50.1) % [place] % (Auto) 8.3 H (2-8) % Eos % (Auto) 8.2 H (1.0-3.0) % Baso % (Auto) 0.4 (0.0-1.0) % Sodium 139 (136-145) mmol/L Potassium 3.5 (3.5-5.1) mmol/L Chloride 101 (98-107) mmol/L Carbon Dioxide 26 (21-32) mmol/L Anion Gap 15.5 H (7-13) mEq/L BUN 13 (7-18) mg/dL Creatinine 0.74 (0.55-1.02) mg/dL Est Cr Clr Drug Dosing 76.73 mL/min Estimated GFR (MDRD) > 60 BUN/Creatinine Ratio 17.6 (No establ ref range) Glucose 150 H (74-99) mg/dL Lactic Acid (0.4-2.0) mmol/L Calcium 8.4 L (8.5-10.1) mg/dL Total Bilirubin 0.4 (0.2-1.0) mg/dL AST 17 (15-37) U/L ALT 35 (14-59) U/L Alkaline Phosphatase 107 (46-116) U/L Troponin I (0.000-0.056) ng/mL C-Reactive Protein 1.1 H (0.0-0.9) mg/dL Total Protein 8.2 (6.4-8.2) g/dL Albumin 4.1 (3.4-5.0) g/dL Globulin 4.1 Albumin/Globulin Ratio 1.0 Urine Opiates Screen (NEGATIVE) Ur Oxycodone Screen (NEGATIVE) Urine Methadone Screen (NEGATIVE) Ur Barbiturates Screen (NEGATIVE) U Tricyclic Antidepress (NEGATIVE) Ur Phencyclidine Scrn (NEGATIVE) Ur Amphetamine Screen (NEGATIVE) U Methamphetamines Scrn (NEGATIVE) Urine MDMA Screen (NEGATIVE) U Benzodiazepines Scrn (NEGATIVE) Urine Cocaine Screen (NEGATIVE) U Marijuana (THC) Screen (NEGATIVE) Ethyl Alcohol (0) mg/dL COVID-19 (ZAHRAA) Negative (NEGATIVE) 04/20/20 04/20/20 04/20/20 Range/Units 00:48 00:48 00:48 WBC (5.0-10.0) 10^3/uL RBC (4.2-5.4) 10^6/uL Hgb (12.0-16.0) g/dL Hct (37.0-47.0) % MCV (80-100) fL MCH (27.0-34.0) pg MCHC (33.0-35.0) g/dL Plt Count (150-450) 10^3/uL Neut % (Auto) (42.2-75.2) % Lymph % (Auto) (20.5-50.1) % [place] % (Auto) (2-8) % Eos % (Auto) (1.0-3.0) % Baso % (Auto) (0.0-1.0) % Sodium (136-145) mmol/L Potassium (3.5-5.1) mmol/L Chloride (98-107) mmol/L Carbon Dioxide (21-32) mmol/L Anion Gap (7-13) mEq/L BUN (7-18) mg/dL Creatinine (0.55-1.02) mg/dL Est Cr Clr Drug Dosing mL/min Estimated GFR (MDRD) BUN/Creatinine Ratio (No establ ref range) Glucose (74-99) mg/dL Lactic Acid 1.8 (0.4-2.0) mmol/L Calcium (8.5-10.1) mg/dL Total Bilirubin (0.2-1.0) mg/dL AST (15-37) U/L ALT (14-59) U/L Alkaline Phosphatase (46-116) U/L Troponin I < 0.017 (0.000-0.056) ng/mL C-Reactive Protein (0.0-0.9) mg/dL Total Protein (6.4-8.2) g/dL Albumin (3.4-5.0) g/dL Globulin Albumin/Globulin Ratio Urine Opiates Screen (NEGATIVE) Ur Oxycodone Screen (NEGATIVE) Urine Methadone Screen (NEGATIVE) Ur Barbiturates Screen (NEGATIVE) U Tricyclic Antidepress (NEGATIVE) Ur Phencyclidine Scrn (NEGATIVE) Ur Amphetamine Screen (NEGATIVE) U Methamphetamines Scrn (NEGATIVE) Urine MDMA Screen (NEGATIVE) U Benzodiazepines Scrn (NEGATIVE) Urine Cocaine Screen (NEGATIVE) U Marijuana (THC) Screen (NEGATIVE) Ethyl Alcohol < 3 (0) mg/dL COVID-19 (ZAHRAA) (NEGATIVE) 04/20/20 Range/Units 01:50 WBC (5.0-10.0) 10^3/uL RBC (4.2-5.4) 10^6/uL Hgb (12.0-16.0) g/dL Hct (37.0-47.0) % MCV (80-100) fL MCH (27.0-34.0) pg MCHC (33.0-35.0) g/dL Plt Count (150-450) 10^3/uL Neut % (Auto) (42.2-75.2) % Lymph % (Auto) (20.5-50.1) % [place] % (Auto) (2-8) % Eos % (Auto) (1.0-3.0) % Baso % (Auto) (0.0-1.0) % Sodium (136-145) mmol/L Potassium (3.5-5.1) mmol/L Chloride (98-107) mmol/L Carbon Dioxide (21-32) mmol/L Anion Gap (7-13) mEq/L BUN (7-18) mg/dL Creatinine (0.55-1.02) mg/dL Est Cr Clr Drug Dosing mL/min Estimated GFR (MDRD) BUN/Creatinine Ratio (No establ ref range) Glucose (74-99) mg/dL Lactic Acid (0.4-2.0) mmol/L Calcium (8.5-10.1) mg/dL Total Bilirubin (0.2-1.0) mg/dL AST (15-37) U/L ALT (14-59) U/L Alkaline Phosphatase (46-116) U/L Troponin I (0.000-0.056) ng/mL C-Reactive Protein (0.0-0.9) mg/dL Total Protein (6.4-8.2) g/dL Albumin (3.4-5.0) g/dL Globulin Albumin/Globulin Ratio Urine Opiates Screen Negative (NEGATIVE) Ur Oxycodone Screen Negative (NEGATIVE) Urine Methadone Screen Negative (NEGATIVE) Ur Barbiturates Screen Negative (NEGATIVE) U Tricyclic Antidepress Negative (NEGATIVE) Ur Phencyclidine Scrn Negative (NEGATIVE) Ur Amphetamine Screen Negative (NEGATIVE) U Methamphetamines Scrn Positive H (NEGATIVE) Urine MDMA Screen Positive H (NEGATIVE) U Benzodiazepines Scrn Negative (NEGATIVE) Urine Cocaine Screen Negative (NEGATIVE) U Marijuana (THC) Screen Negative (NEGATIVE) Ethyl Alcohol (0) mg/dL COVID-19 (ZAHRAA) (NEGATIVE) Meds: Medications Discontinued Medications Generic Name Dose Route Start Last Admin Trade Name Freq PRN Reason Stop Dose Admin Albuterol 2.5 mg 04/20/20 00:28 04/20/20 00:39 Proventil Neb Soln NEB 04/20/20 00:29 2.5 mg ONETIME ONE Administration Magnesium Sulfate/Dextrose 2 200 mls @ 100 mls/hr 04/20/20 00:30 04/20/20 00:42 gm/ Premix IV 04/20/20 02:29 100 mls/hr ONETIME ONE Administration Sodium Chloride 1,000 mls @ 999 mls/hr 04/20/20 03:15 04/20/20 03:09 Normal Saline IV 150 mls/hr ASDIRECTED [facility] Infusion Lorazepam 1 mg 04/20/20 00:28 04/20/20 00:41 Ativan IVPUSH 04/20/20 00:29 1 mg ONETIME ONE Administration Lorazepam 1 mg 04/20/20 01:04 04/20/20 01:05 Ativan IVPUSH 04/20/20 01:05 1 mg ONETIME ONE Administration Lorazepam Confirm 04/20/20 01:03 04/20/20 01:07 Ativan Administered 04/20/20 01:04 Not Given Dose 2 mg .ROUTE .STK-MED ONE Methylprednisolone Sodium Succinate 125 mg 04/20/20 02:42 04/20/20 02:50 Solu-Medrol IVPUSH 04/20/20 02:43 125 mg ONETIME ONE Administration Racepinephrine 0.5 ml 04/20/20 01:21 04/20/20 01:29 S-2 2.25% NEB 04/20/20 01:22 0.5 ml ONETIME ONE Administration Racepinephrine 0.5 ml 04/20/20 02:04 04/20/20 02:23 S-2 2.25% NEB 04/20/20 02:05 0.5 ml ONETIME ONE Administration Racepinephrine Confirm 04/20/20 02:12 04/20/20 02:24 S-2 2.25% Administered 04/20/20 02:13 Not Given Dose 0.5 ml .ROUTE .Zapproved-MED ONE - Re-Assessments/Exams Free Text/Narrative Re-Assessment/Exam: Patient status decline , increased respiratory difficulty more anxious. RT here, [employer] here for intubation. 7-0 ET, Continued resistance and wheezing. 04/20/20 02:15 Dr Jules Gordon accepting patient. Tx via [email or web address] flight 04/20/20 03:09 Awaiting arrival Evan, [place] Continued wheezing bilaterally . Ramemic Epi repeated, minimal response. Solu medrol repeated. 04/20/20 03:36 [email or web address] flight here. Departure - Departure Time of Disposition: 03:35 Disposition: DC/Tfer to Acute Hospital 02 Condition: Undetermined Clinical Impression: Asthma with status asthmaticus Qualifiers: Asthma severity: severe persistent Qualified Code(s): J45.52 - Severe persistent asthma with status asthmaticus - Discharge Information *PRESCRIPTION DRUG MONITORING PROGRAM REVIEWED*: No *COPY OF PRESCRIPTION DRUG MONITORING REPORT IN PATIENT KAREEM: No Referrals: Emy Maza MD [Primary Care Provider] - Forms: ED Department Discharge Sepsis Event Note (ED) - Evaluation Sepsis Screening Result: No Definite Risk - Focused Exam Vital Signs: Vital Signs Temp Pulse Resp BP Pulse Ox 04/20/20 02:19 97.4 F 127 H 24 H 149/75 H 100 04/20/20 01:03 98.4 F 140 H 24 H 96 04/20/20 00:27 99.9 F 126 H 32 H 135/84 98 - My Orders Last 24 Hours: My Active Orders 04/20/20 00:27 Blood Culture x2 Reflex Set [OM.PC] Stat 04/20/20 00:30 RT Aerosol Therapy [RC] ASDIRECTED 04/20/20 00:48 CULTURE BLOOD [BC] Stat 04/20/20 01:04 ABG [BLOOD GAS ARTERIAL] [BG] Stat 04/20/20 01:21 RT Aerosol Therapy [RC] ASDIRECTED 04/20/20 01:48 CULTURE BLOOD [BC] Stat 04/20/20 02:04 RT Aerosol Therapy [RC] ASDIRECTED - Assessment/Plan Last 24 Hours: My Active Orders 04/20/20 00:27 Blood Culture x2 Reflex Set [OM.PC] Stat 04/20/20 00:30 RT Aerosol Therapy [RC] ASDIRECTED 04/20/20 00:48 CULTURE BLOOD [BC] Stat 04/20/20 01:04 ABG [BLOOD GAS ARTERIAL] [BG] Stat 04/20/20 01:21 RT Aerosol Therapy [RC] ASDIRECTED 04/20/20 01:48 CULTURE BLOOD [BC] Stat 04/20/20 02:04 RT Aerosol Therapy [RC] ASDIRECTED
[2020-04-20] MEDS ORDERED: Racepinephrine 2.25% 0.5 ML Neb Soln ONE (02:12)
[2020-04-20 02:21] VITALS: BP 149/75; PULSE 127
--- NOTE | 2020-04-20 02:33 | CR ---
PROCEDURE INFORMATION: Exam: XR Chest, 1 View Exam date and time: 04/20/2020 2:07 AM Age: 44 years old Clinical indication: Device placement; Ett placement (vent status); Additional info: SOB asthma, post intubation TECHNIQUE: Imaging protocol: XR of the chest Views: 1 view. COMPARISON: CR Chest 1V Frontal 03/24/2020 9:51 PM FINDINGS: Tubes, catheters and devices: ET tube above the ben but in a low position and should be withdrawn 2 cm. NG tube in good position . Lungs: Small area of atelectasis in the right upper lung Pleural space: Unremarkable. No pleural effusion. No pneumothorax. Heart/Mediastinum: Unremarkable. No cardiomegaly. Bones/joints: Unremarkable. IMPRESSION: 1. ET tube above the ben but in a low position and should be withdrawn 2 cm. 2. Small area of atelectasis in the right upper lung
[2020-04-20] MEDS ORDERED: methylPREDNISolone Sodium Succinate 125 MG/2 ML SDV IVPUSH ONE (02:42)
== END 2020-04-20 03:50 ==
LOC: DL.ED 00:26
DX: J45.52 Severe persistent asthma with status asthmaticus (principal); Z20.828 Contact with and (suspected) exposure to other viral communicable diseases
CPT/HCPCS: 31500; 36415; 43752; 51702; 71045; 80053; 80305-QW; 80307; 83605; 84484; 85025; 86140; 87040; 87077; 87186; 94640; 96365; 96366; 96375; 99152; 99153; 99284; 99285-25; J0330; J2060; J2704; J2930; J3475; J7030; J7613-GY; U0002

== ENCOUNTER 2020-09-30 01:24 | Emergency (ER) | payer MEDICAID, OTHER ==
--- NOTE | 2020-09-30 01:30 | EDM.PDOC ---
ED HPI GENERAL MEDICAL PROBLEM - General Stated Complaint: LAW ENFORCEMENT Time Seen by Provider: 09/30/20 01:29 Source of Information: Reports: Patient, Police History Limitations: Reports: No Limitations - History of Present Illness INITIAL COMMENTS - FREE TEXT/NARRATIVE: brought in by PD for SOB. pt gives h/o asthma and out of inhaler - Related Data Allergies Allergy/AdvReac Type Severity Reaction Status Date / Time No Known Allergies Allergy Verified 09/30/20 01:52 Home Meds: Home Meds Albuterol [Proventil HFA] 6.7 gm INH Q6H 11/08/15 [History] Albuterol/Ipratropium [DuoNeb 3.0-0.5 MG/3 ML] 3 ml NEB Q4HRRT 11/08/15 [History] Fluticasone Propion/Salmeterol [Wixela 500-50 Inhub] 1 inh INH DAILY 02/20/20 [History] Azithromycin 250 mg PO DAILY #4 tablet 03/26/20 [Rx] Pantoprazole [ProTONIX] 40 mg PO ACBREAKFAST #10 tab.cr 03/26/20 [Rx] guaiFENesin [Robitussin] 100 mg PO Q6H PRN #1 cup 03/26/20 [Rx] metFORMIN [Glucophage XR] 500 mg PO BIDMEALS 30 Days #60 tab.er 03/26/20 [Rx] predniSONE 40 mg PO WITHBREAKFAST #5 tab 03/26/20 [Rx] Past Medical History - Past Health History Medical/Surgical History: Denies Medical/Surgical History Respiratory History: Reports: Asthma Psychiatric History: Reports: Addiction Endocrine/Metabolic History: Reports: Hyperthyroidism - Past Surgical History Female Surgical History: Reports: Section, Hysterectomy Social & Family History - Family History Family Medical History: Unobtainable - Caffeine Use Caffeine Use: Reports: None - Living Situation & Occupation Living situation: Reports: with Family Occupation: Unemployed ED ROS GENERAL - Review of Systems Review Of Systems: Comprehensive ROS is negative, except as noted in HPI. ED EXAM, GENERAL - Physical Exam Exam: See Below Exam Limited By: No Limitations General Appearance: Alert, WD/WN, Anxious, Mild Distress Ears: Hearing Grossly Normal Throat/Mouth: Normal Voice, No Airway Compromise Head: Atraumatic Neck: Non-Tender, Full Range of Motion Respiratory/Chest: No Accessory Muscle Use, Decreased Breath Sounds, Rhonchi, Wheezing Cardiovascular: Regular Rate, Rhythm GI/Abdominal: Soft, Non-Tender (Female) Exam: Deferred Rectal (Female) Exam: Deferred Neurological: Alert, Oriented, Normal Cognition, Normal Gait, No Motor/Sensory Deficits Psychiatric: Anxious Skin Exam: Warm, Dry, Normal Color Lymphatic: No Adenopathy Course - Vital Signs Last Recorded V/S: Last Vital Signs Temp 35.9 C L 09/30/20 01:30 Pulse 65 09/30/20 01:30 Resp 22 H 09/30/20 01:30 BP 133/108 H 09/30/20 01:30 Pulse Ox 96 09/30/20 01:30 - Orders/Labs/Meds Orders: Active Orders 24 hr Category Date Time Status RT Aerosol Therapy [RC] ASDIRECTED Care 09/30/20 01:28 Active COMPREHENSIVE METABOLIC PN,CMP [CHEM] Stat Lab 09/30/20 01:28 Ordered ETOH [ETHANOL BLOOD MEDICAL] [CHEM] Stat Lab 09/30/20 01:28 Ordered Labs: Laboratory Tests 09/30/20 Range/Units 01:34 WBC 13.1 H (5.0-10.0) 10^3/uL RBC 5.22 (4.2-5.4) 10^6/uL Hgb 14.6 (12.0-16.0) g/dL Hct 42.6 (37.0-47.0) % MCV 81.6 (80-100) fL MCH 28.0 (27.0-34.0) pg MCHC 34.3 (33.0-35.0) g/dL Plt Count 404 (150-450) 10^3/uL Neut % (Auto) 51.2 (42.2-75.2) % Lymph % (Auto) 32.8 (20.5-50.1) % [place] % (Auto) 8.3 H (2-8) % Eos % (Auto) 7.2 H (1.0-3.0) % Baso % (Auto) 0.5 (0.0-1.0) % Meds: Medications Discontinued Medications Generic Name Dose Route Start Last Admin Trade Name Freq PRN Reason Stop Dose Admin Albuterol/Ipratropium 3 ml 09/30/20 01:28 01/01/21 01:33 Duoneb 3.0-0.5 Mg/3 Ml NEB 09/30/20 01:29 3 ml ONETIME ONE Administration Methylprednisolone Sodium Succinate 125 mg 09/30/20 01:28 09/30/20 01:33 Solu-Medrol IVPUSH 09/30/20 01:29 125 mg ONETIME ONE Administration - Re-Assessments/Exams Free Text/Narrative Re-Assessment/Exam: 09/30/20 02:07 re-exam; s/p duoneb + solumed = much better. states allergic to cats and was at nephew's place that has cats but he lost the plastic piece to her inhaler and she couldn't use it. Departure - Departure Time of Disposition: 02:08 Disposition: Home, Self-Care 01 Condition: Good Clinical Impression: Asthma exacerbation Qualifiers: Asthma severity: moderate Asthma persistence: persistent Qualified Code(s): J45.41 - Moderate persistent asthma with (acute) exacerbation - Discharge Information Forms: ED Department Discharge Additional Instructions: 1) rest 2) follow up with clinic rx tgo; albuterol inhaler tid prn Sepsis Event Note (ED) - Focused Exam Vital Signs: Vital Signs Temp Pulse Resp BP Pulse Ox 09/30/20 01:30 35.9 C L 65 22 H 133/108 H 96 - My Orders Last 24 Hours: My Active Orders 09/30/20 01:28 RT Aerosol Therapy [RC] ASDIRECTED COMPREHENSIVE METABOLIC PN,CMP [CHEM] Stat ETOH [ETHANOL BLOOD MEDICAL] [CHEM] Stat - Assessment/Plan Last 24 Hours: My Active Orders 09/30/20 01:28 RT Aerosol Therapy [RC] ASDIRECTED COMPREHENSIVE METABOLIC PN,CMP [CHEM] Stat ETOH [ETHANOL BLOOD MEDICAL] [CHEM] Stat
[2020-09-30] MEDS: methylPREDNISolone Sodium Succinate 125 MG/2 ML SDV IVPUSH ONE (01:33)
[2020-09-30] MEDS: Albuterol/Ipratropium 3.0-0.5 MG/3 ML Neb Soln NEB ONE (01:33)
[2020-09-30 01:51] VITALS: BP 133/108; PULSE 65
[2020-09-30 02:10] LABS: ANION GAP 20.3 mEq/L (7-13); CHLORIDE,CL 102 mmol/L (98-107); SODIUM,NA 139 mmol/L (136-145)
[2020-09-30] MEDS ORDERED: Albuterol 6.7 GM Inhaler INH ONE (02:12)
== END 2020-09-30 02:18 | disposition home or self-care (01) ==
LOC: DL.ED 01:24
DX: J45.41 Moderate persistent asthma with (acute) exacerbation (principal); Z79.899 Other long term (current) drug therapy
CPT/HCPCS: 36415; 80053; 80307; 85025; 94640; 96374; 99285; A9270; J2930; 99283; J7620-GY

== ENCOUNTER 2021-02-14 22:37 | Inpatient (IN) | payer MEDICAID ==
[2021-02-14] MEDS ORDERED: Albuterol/Ipratropium 3.0-0.5 MG/3 ML Neb Soln ONE (22:55)
[2021-02-14] MEDS ORDERED: Albuterol/Ipratropium 3.0-0.5 MG/3 ML Neb Soln NEB ONE (23:03)
[2021-02-14] MEDS ORDERED: methylPREDNISolone Sodium Succinate 125 MG/2 ML SDV IVPUSH ONE (23:05)
[2021-02-14 23:26] LABS: BASE EXCESS ARTERIAL -3 mmol/L ((-2)-(+3)); O2 DELIVERY DEVICE AEROSOL MASK; O2 SATURATION ARTERIAL 95 % (95-100); PCO2 ARTERIAL 36 mmHg (35-45); PO2 ARTERIAL 74 mmHg (70-100)
[2021-02-14 23:28] LABS: ALLEN TEST pos
[2021-02-14 23:29] LABS: O2 FLOW RATE 0
[2021-02-14] MEDS ORDERED: diphenhydrAMINE 50 MG/ML SDV IVPUSH ONE (23:53)
[2021-02-15] LABS: ANION GAP 14.6 mEq/L (7-13); CHLORIDE,CL 105 mmol/L (98-107); SODIUM,NA 140 mmol/L (136-145)
--- NOTE | 2021-02-15 00:19 | EDM.PDOC ---
ED HPI GENERAL MEDICAL PROBLEM - General Chief Complaint: Respiratory Problem Stated Complaint: BY AMBULANCE Time Seen by Provider: 02/14/21 23:15 Source of Information: Reports: Patient, EMS History Limitations: Reports: No Limitations - History of Present Illness INITIAL COMMENTS - FREE TEXT/NARRATIVE: ED via [facility] with report of asthma exacerbation, Hx COPD tobacco use. Patient reports onset 2 days prior. Multiple back to back nebs at home today thought would get better and then get worse again. Hx multiple intubations in past for worsening asthma. No fever chill. No known exposure to covid. - Related Data Allergies Allergy/AdvReac Type Severity Reaction Status Date / Time No Known Allergies Allergy Verified 02/14/21 23:27 Home Meds: Home Meds Albuterol [Proventil HFA] 6.7 gm INH Q6H 11/08/15 [History] Albuterol/Ipratropium [DuoNeb 3.0-0.5 MG/3 ML] 3 ml NEB Q4HRRT 11/08/15 [History] Fluticasone Propion/Salmeterol [Wixela 500-50 Inhub] 1 inh INH DAILY 02/20/20 [History] predniSONE 40 mg PO WITHBREAKFAST #5 tab 03/26/20 [Rx] Tiotropium [Spiriva] 18 mcg INH DAILY 02/15/21 [History] Past Medical History - Past Health History Medical/Surgical History: Denies Medical/Surgical History Respiratory History: Reports: Asthma, COPD Psychiatric History: Reports: Addiction Endocrine/Metabolic History: Reports: Hyperthyroidism - Past Surgical History Female Surgical History: Reports: Section, Hysterectomy Social & Family History - Family History Family Medical History: Unobtainable - Tobacco Use Tobacco Use Status *Q: Current Every Day Tobacco User Years of Tobacco use: 20 Packs/Tins Daily: 1 - Caffeine Use Caffeine Use: Reports: Coffee, Soda - Living Situation & Occupation Living situation: Reports: with Family Occupation: Unemployed ED ROS GENERAL - Review of Systems Review Of Systems: See Below Constitutional: Reports: Decreased Appetite. Denies: Fever, Chills, Weakness HEENT: Reports: No Symptoms Respiratory: Reports: Shortness of Breath, Wheezing, Cough, Other (smoker). Denies: Sputum Cardiovascular: Reports: No Symptoms Endocrine: Reports: No Symptoms GI/Abdominal: Reports: No Symptoms Musculoskeletal: Reports: No Symptoms Skin: Reports: No Symptoms Neurological: Reports: No Symptoms Psychiatric: Reports: Other (admits last meth use 4 days prior) ED EXAM, GENERAL - Physical Exam Exam: See Below Exam Limited By: No Limitations General Appearance: Alert, Moderate Distress Eye Exam: Bilateral Eye: EOMI, PERRL Ears: Normal External Exam, Hearing Grossly Normal Nose: Normal Inspection Throat/Mouth: Normal Inspection Head: Atraumatic, Normocephalic Neck: Normal Inspection Respiratory/Chest: Decreased Breath Sounds, Wheezing, Other (1-2 word on presentation, imporved following 2nd neb and solumedrol) Cardiovascular: Regular Rate, Rhythm, No Murmur, Tachycardia GI/Abdominal: Normal Bowel Sounds, Soft Extremities: Other (bruise ruight upper arm) Neurological: Alert, Oriented, Normal Cognition Psychiatric: Normal Affect, Normal Mood Skin Exam: Warm, Dry, Intact, Ecchymosis (right upper mid arm), Other (multiple IV sticks difficult start) Course - Vital Signs Last Recorded V/S: Last Vital Signs Temp 98.8 F 02/15/21 04:00 Pulse 102 H 02/15/21 04:00 Resp 24 H 02/15/21 04:00 BP 128/69 02/15/21 04:00 Pulse Ox 96 02/15/21 04:00 - Orders/Labs/Meds Orders: Active Orders 24 hr Category Date Time Status RT Aerosol Therapy [RC] ASDIRECTED Care 02/14/21 23:04 Active Medication Orders Acetaminophen (Acetaminophen 325 Mg Tab) 650 mg PO Q4H PRN PRN Reason: Pain (Mild 1-3)/fever Albuterol/Ipratropium (Albuterol/Ipratropium 3.0-0.5 Mg/3 Ml Neb Soln) 3 ml NEB Q4H PRN PRN Reason: shortness of breath/wheezing Last Admin: 02/15/21 03:33 Dose: 3 ml Documented by: UMU Albuterol/Ipratropium (Albuterol/Ipratropium 3.0-0.5 Mg/3 Ml Neb Soln) 3 ml NEB QIDRT [facility] Last Admin: 02/15/21 00:51 Dose: 3 ml Documented by: TRINITY Azithromycin (Azithromycin 200 Mg/5 Ml Susp 30 Ml Bottle) 250 mg PO DAILY [facility] Enoxaparin Sodium (Enoxaparin 40 Mg/0.4 Ml Syringe) 40 mg SUBCUT DAILY [facility] Methylprednisolone Sodium Succinate (Methylprednisolone Sodium Succinate 40 Mg/1 Ml Sdv) 40 mg IVPUSH Q6H [facility] Last Admin: 02/15/21 05:40 Dose: 40 mg Documented by: UMU Montelukast Sodium (Montelukast 10 Mg Tab) 10 mg PO BEDTIME [facility] Nicotine (Nicotine 7 Mg/24 Hr Patch) 7 mg TRDERM DAILY [facility] Labs: Laboratory Tests 02/14/21 02/14/21 02/14/21 Range/Units 23:09 23:20 23:31 WBC 22.5 H (5.0-10.0) 10^3/uL RBC 4.94 (4.2-5.4) 10^6/uL Hgb 13.9 (12.0-16.0) g/dL Hct 41.3 (37.0-47.0) % MCV 83.6 (80-100) fL MCH 28.1 (27.0-34.0) pg MCHC 33.7 (33.0-35.0) g/dL Plt Count 495 H D (150-450) 10^3/uL Neut % (Auto) 91.9 H (42.2-75.2) % Lymph % (Auto) 4.3 L (20.5-50.1) % Bryan % (Auto) 3.8 (2-8) % Eos % (Auto) 0.0 L (1.0-3.0) % Baso % (Auto) 0.0 (0.0-1.0) % ABG pH 7.38 (7.35-7.45) ABG pCO2 36 (35-45) mmHg ABG pO2 74 (70-100) mmHg ABG HCO3 21.0 L (22-26) mmol/L ABG O2 Saturation 95 (95-100) % ABG Base Excess -3 L ((-2)-(+3)) mmol/L Cole Test pos O2 Delivery Device Aerosol mask Oxygen Flow Rate 0 Sodium (136-145) mmol/L Potassium (3.5-5.1) mmol/L Chloride (98-107) mmol/L Carbon Dioxide (21-32) mmol/L Anion Gap (7-13) mEq/L BUN (7-18) mg/dL Creatinine (0.55-1.02) mg/dL Est Cr Clr Drug Dosing mL/min Estimated GFR (MDRD) BUN/Creatinine Ratio (No establ ref range) Glucose (70-99) mg/dL Lactic Acid (0.4-2.0) mmol/L Calcium (8.5-10.1) mg/dL Magnesium (1.8-2.4) mg/dL Total Bilirubin (0.2-1.0) mg/dL AST (15-37) U/L ALT (14-59) U/L Alkaline Phosphatase (46-116) U/L Troponin I (0.000-0.056) ng/mL Total Protein (6.4-8.2) g/dL Albumin (3.4-5.0) g/dL Globulin Albumin/Globulin Ratio SARS-CoV-2 RNA (ZAHRAA) Negative (NEGATIVE) 02/14/21 02/14/21 Range/Units 23:31 23:31 WBC (5.0-10.0) 10^3/uL RBC (4.2-5.4) 10^6/uL Hgb (12.0-16.0) g/dL Hct (37.0-47.0) % MCV (80-100) fL MCH (27.0-34.0) pg MCHC (33.0-35.0) g/dL Plt Count (150-450) 10^3/uL Neut % (Auto) (42.2-75.2) % Lymph % (Auto) (20.5-50.1) % [place] % (Auto) (2-8) % Eos % (Auto) (1.0-3.0) % Baso % (Auto) (0.0-1.0) % ABG pH (7.35-7.45) ABG pCO2 (35-45) mmHg ABG pO2 (70-100) mmHg ABG HCO3 (22-26) mmol/L ABG O2 Saturation (95-100) % ABG Base Excess ((-2)-(+3)) mmol/L Cole Test O2 Delivery Device Oxygen Flow Rate Sodium 140 (136-145) mmol/L Potassium 3.6 (3.5-5.1) mmol/L Chloride 105 (98-107) mmol/L Carbon Dioxide 24 (21-32) mmol/L Anion Gap 14.6 H (7-13) mEq/L BUN 11 (7-18) mg/dL Creatinine 0.83 (0.55-1.02) mg/dL Est Cr Clr Drug Dosing 67.70 mL/min Estimated GFR (MDRD) > 60 BUN/Creatinine Ratio 13.3 (No establ ref range) Glucose 171 H (70-99) mg/dL Lactic Acid 3.6 H* (0.4-2.0) mmol/L Calcium 8.6 (8.5-10.1) mg/dL Magnesium 1.8 (1.8-2.4) mg/dL Total Bilirubin 0.1 L (0.2-1.0) mg/dL AST 9 L (15-37) U/L ALT 23 (14-59) U/L Alkaline Phosphatase 116 (46-116) U/L Troponin I < 0.017 (0.000-0.056) ng/mL Total Protein 7.7 (6.4-8.2) g/dL Albumin 3.3 L (3.4-5.0) g/dL Globulin 4.4 Albumin/Globulin Ratio 0.75 SARS-CoV-2 RNA (ZAHRAA) (NEGATIVE) Meds: Medications Generic Name Dose Route Start Last Admin Trade Name Freq PRN Reason Stop Dose Admin Acetaminophen 650 mg 02/15/21 00:27 Acetaminophen 325 Mg Tab PO Q4H PRN Pain (Mild 1-3)/fever Albuterol/Ipratropium 3 ml 02/15/21 00:27 02/15/21 03:33 Albuterol/Ipratropium 3.0-0.5 Mg/3 Ml Neb Soln NEB 3 ml Q4H PRN Administration shortness of breath/wheezing Albuterol/Ipratropium 3 ml 02/15/21 07:00 02/15/21 00:51 Albuterol/Ipratropium 3.0-0.5 Mg/3 Ml Neb Soln NEB 3 ml QIDRT [facility] Administration Azithromycin 250 mg 02/16/21 09:00 Azithromycin 200 Mg/5 Ml Susp 30 Ml Bottle PO DAILY [facility] Enoxaparin Sodium 40 mg 02/15/21 09:00 Enoxaparin 40 Mg/0.4 Ml Syringe SUBCUT DAILY [facility] Methylprednisolone Sodium Succinate 40 mg 02/15/21 06:00 02/15/21 05:40 Methylprednisolone Sodium Succinate 40 Mg/1 Ml Sdv IVPUSH 40 mg Q6H [facility] Administration Montelukast Sodium 10 mg 02/15/21 21:00 Montelukast 10 Mg Tab PO BEDTIME [facility] Nicotine 7 mg 02/15/21 09:00 Nicotine 7 Mg/24 Hr Patch TRDERM DAILY [facility] Discontinued Medications Generic Name Dose Route Start Last Admin Trade Name Freq PRN Reason Stop Dose Admin Albuterol/Ipratropium Confirm 02/14/21 22:55 02/14/21 23:08 Albuterol/Ipratropium 3.0-0.5 Mg/3 Ml Neb Soln Administered 02/14/21 22:56 Not Given Dose 3 ml .ROUTE .STK-MED ONE Albuterol/Ipratropium 3 ml 02/14/21 23:03 02/14/21 23:08 Albuterol/Ipratropium 3.0-0.5 Mg/3 Ml Neb Soln NEB 02/14/21 23:04 3 ml ONETIME ONE Administration Diphenhydramine HCl 25 mg 02/14/21 23:53 02/15/21 00:12 Diphenhydramine 50 Mg/Ml Sdv IVPUSH 02/14/21 23:54 25 mg ONETIME ONE Administration Magnesium Sulfate/Dextrose 1 100 mls @ 100 mls/hr 02/14/21 23:32 02/14/21 23:41 gm/ Premix IV 02/15/21 00:31 100 mls/hr ONETIME ONE Administration Azithromycin 500 mg/ Sodium 250 mls @ 250 mls/hr 02/15/21 00:31 02/15/21 01:13 Chloride IV 02/15/21 01:30 250 mls/hr ONETIME ONE Administration Methylprednisolone Sodium Succinate 125 mg 02/14/21 23:05 02/14/21 23:14 Methylprednisolone Sodium Succinate 125 Mg/2 Ml Sdv IVPUSH 02/14/21 23:06 125 mg ONETIME ONE Administration - Re-Assessments/Exams Free Text/Narrative Re-Assessment/Exam: 02/15/21 00:20 Dr Cho here to assess patient , agreeable to admission. Departure - Departure Time of Disposition: 00:24 Disposition: Admitted As Inpatient 66 Condition: Fair Clinical Impression: Tobacco abuse Asthma with status asthmaticus Qualifiers: Asthma severity: severe persistent Qualified Code(s): J45.52 - Severe persistent asthma with status asthmaticus - Discharge Information *PRESCRIPTION DRUG MONITORING PROGRAM REVIEWED*: No *COPY OF PRESCRIPTION DRUG MONITORING REPORT IN PATIENT KAREEM: No Sepsis Event Note (ED) - Evaluation Sepsis Screening Result: No Definite Risk - Focused Exam Vital Signs: Vital Signs Temp Pulse Resp BP Pulse Ox 02/14/21 23:16 98.4 F 134 H 28 H 162/71 H 98 - My Orders Last 24 Hours: My Active Orders 02/14/21 23:04 RT Aerosol Therapy [RC] ASDIRECTED - Assessment/Plan Last 24 Hours: My Active Orders 02/14/21 23:04 RT Aerosol Therapy [RC] ASDIRECTED
[2021-02-15] MEDS ORDERED: Acetaminophen 325 MG Tab PO PRN (00:27)
[2021-02-15] MEDS ORDERED: Albuterol/Ipratropium 3.0-0.5 MG/3 ML Neb Soln NEB PRN (00:27)
[2021-02-15] MEDS ORDERED: Azithromycin 500 MG in Sodium Chloride 0.9% 250 ML IV ONE (00:31)
--- NOTE | 2021-02-15 00:32 | CR ---
PROCEDURE INFORMATION: Exam: XR Chest Exam date and time: 02/14/2021 11:59 PM Age: 45 years old Clinical indication: Shortness of breath; Additional info: SOB TECHNIQUE: Imaging protocol: XR of the chest. Views: 1 view. COMPARISON: CR Chest 1V Frontal 04/20/2020 2:07 AM FINDINGS: Lungs: Unremarkable. No consolidation. Pleural spaces: Unremarkable. No pleural effusion. No pneumothorax. Heart/Mediastinum: Unremarkable. No cardiomegaly. Bones/joints: Unremarkable. IMPRESSION: No acute findings.
[2021-02-15] MEDS: Albuterol/Ipratropium 3.0-0.5 MG/3 ML Neb Soln NEB SCH ×5 (00:51→21:19)
[2021-02-15] MEDS: methylPREDNISolone Sodium Succinate 40 MG/1 ML SDV IVPUSH SCH ×4 (05:40→23:06)
[2021-02-15 06:53] LABS: ANION GAP 15.3 mEq/L (7-13); CHLORIDE,CL 105 mmol/L (98-107); SODIUM,NA 139 mmol/L (136-145)
[2021-02-15] MEDS ORDERED: Glucagon,Human Recombinant 1 MG Vial IM PRN (08:51)
[2021-02-15] MEDS ORDERED: 50% Dextrose in Water 50 ML Syringe IV PRN (08:51)
[2021-02-15] MEDS: Nicotine 7 MG/24 Hr Patch TRDERM SCH (09:03)
[2021-02-15] MEDS: Enoxaparin 40 MG/0.4 ML Syringe SUBCUT SCH (09:03)
--- NOTE | 2021-02-15 10:36 | PCM.HP ---
H&P History of Present Illness - General Date of Service: 02/15/21 Admit Problem/Dx: Admission Diagnosis/Problem Admission Diagnosis/Problem Asthma with acute exacerbation - History of Present Illness Initial Comments - Free Text/Narative: 45F w/ pmh asthma c/b multiple intubations, active smoker, meth use, DM p/w respiratory distress. Pt notes onset of dyspnea, productive cough and wheezing about 2 days ago. Denies fevers. Symptoms are similar to prior asthma exacerbations. Initially in ED w/ severe respiratory distress but improved w/ serial nebulizers. - Related Data Allergies/Adverse Reactions: Allergies Allergy/AdvReac Type Severity Reaction Status Date / Time No Known Allergies Allergy Verified 02/14/21 23:27 Home Medications: Home Meds Albuterol [Proventil HFA] 6.7 gm INH Q6H 11/08/15 [History] Albuterol/Ipratropium [DuoNeb 3.0-0.5 MG/3 ML] 3 ml NEB Q4HRRT 11/08/15 [History] Fluticasone Propion/Salmeterol [Wixela 500-50 Inhub] 1 inh INH BID 02/20/20 [History] predniSONE 40 mg PO WITHBREAKFAST #5 tab 03/26/20 [Rx] Tiotropium [Spiriva] 18 mcg INH DAILY 02/15/21 [History] metFORMIN HCl [Metformin HCl] 500 mg PO BIDMEALS 02/15/21 [History] Past Medical History - Past Health History Medical/Surgical History: Denies Medical/Surgical History Respiratory History: Reports: Asthma, COPD [employer] History: Reports: Psychiatric History: Reports: Addiction Endocrine/Metabolic History: Reports: Diabetes, Type II, Hyperthyroidism - Past Surgical History Female Surgical History: Reports: Section, Hysterectomy Social & Family History - Family History Family Medical History: Unobtainable - Tobacco Use Tobacco Use Status *Q: Current Every Day Tobacco User Years of Tobacco use: 30 Packs/Tins Daily: 0.5 Second Hand Smoke Exposure: Yes - Caffeine Use Caffeine Use: Reports: Coffee - Recreational Drug Use Recreational Drug Use: Yes Drug Use in Last 12 Months: Yes Recreational Drug Type: Reports: Marijuana/Hashish, Methamphetamine Recreational Drug Use Frequency: Socially Recreational Drug Last Use: 02/11/21 - Living Situation & Occupation Living situation: Reports: with Family Occupation: Unemployed H&P Review of Systems - Review of Systems: Review Of Systems: See Below General: Denies: Fever HEENT: Denies: Headaches Pulmonary: Reports: Shortness of Breath, Wheezing, Cough, Sputum. Denies: Hemoptysis Cardiovascular: Reports: Palpitations. Denies: Chest Pain, Edema Gastrointestinal: Denies: Abdominal Pain Genitourinary: Denies: Dysuria Musculoskeletal: Denies: Joint Swelling Skin: Denies: Jaundice Psychiatric: Denies: Confusion, Depression Neurological: Denies: Confusion, Dizziness Hematologic/Lymphatic: Denies: Anemia Exam - Exam Exam: See Below - Vital Signs Vital Signs: Last Vital Signs Temp 98.5 F 02/15/21 07:50 Pulse 78 02/15/21 07:50 Resp 20 02/15/21 07:50 BP 114/76 02/15/21 07:50 Pulse Ox 95 02/15/21 07:50 Weight: 156 lb 8 oz - Exam Quality Assessment: No: Supplemental Oxygen General: Alert, Oriented HEENT: Conjunctiva Clear Neck: Supple Lungs: Wheezing (diffuse) Cardiovascular: Regular Rhythm, Tachycardia GI/Abdominal Exam: Normal Bowel Sounds, Soft, Non-Tender, No Distention Back Exam: Normal Inspection Extremities: No Pedal Edema Skin: Warm, Dry, Intact Neurological: Cranial Nerves Intact Neuro Extensive - Mental Status: Alert, Oriented x3 Neuro Extensive - Motor, Sensory, Reflexes: No: Tremor Psychiatric: Alert, Normal Affect, Normal Mood - Patient Data Lab Results Last 24 hrs: Laboratory Results - last 24 hr 02/14/21 02/14/21 02/14/21 Range/Units 23:09 23:20 23:31 WBC 22.5 H (5.0-10.0) 10^3/uL RBC 4.94 (4.2-5.4) 10^6/uL Hgb 13.9 (12.0-16.0) g/dL Hct 41.3 (37.0-47.0) % MCV 83.6 (80-100) fL MCH 28.1 (27.0-34.0) pg MCHC 33.7 (33.0-35.0) g/dL Plt Count 495 H D (150-450) 10^3/uL Neut % (Auto) 91.9 H (42.2-75.2) % Lymph % (Auto) 4.3 L (20.5-50.1) % [place] % (Auto) 3.8 (2-8) % Eos % (Auto) 0.0 L (1.0-3.0) % Baso % (Auto) 0.0 (0.0-1.0) % ABG pH 7.38 (7.35-7.45) ABG pCO2 36 (35-45) mmHg ABG pO2 74 (70-100) mmHg ABG HCO3 21.0 L (22-26) mmol/L ABG O2 Saturation 95 (95-100) % ABG Base Excess -3 L ((-2)-(+3)) mmol/L Cole Test pos O2 Delivery Device Aerosol mask Oxygen Flow Rate 0 Sodium (136-145) mmol/L Potassium (3.5-5.1) mmol/L Chloride (98-107) mmol/L Carbon Dioxide (21-32) mmol/L Anion Gap (7-13) mEq/L BUN (7-18) mg/dL Creatinine (0.55-1.02) mg/dL Est Cr Clr Drug Dosing mL/min Estimated GFR (MDRD) BUN/Creatinine Ratio (No establ ref range) Glucose (70-99) mg/dL Lactic Acid (0.4-2.0) mmol/L Calcium (8.5-10.1) mg/dL Phosphorus (2.6-4.7) mg/dL Magnesium (1.8-2.4) mg/dL Total Bilirubin (0.2-1.0) mg/dL AST (15-37) U/L ALT (14-59) U/L Alkaline Phosphatase (46-116) U/L Troponin I (0.000-0.056) ng/mL Total Protein (6.4-8.2) g/dL Albumin (3.4-5.0) g/dL Globulin Albumin/Globulin Ratio SARS-CoV-2 RNA (ZAHRAA) Negative (NEGATIVE) 02/14/21 02/14/21 02/15/21 Range/Units 23:31 23:31 06:15 WBC 18.5 H (5.0-10.0) 10^3/uL RBC 4.86 (4.2-5.4) 10^6/uL Hgb 13.7 (12.0-16.0) g/dL Hct 40.6 (37.0-47.0) % MCV 83.5 (80-100) fL MCH 28.2 (27.0-34.0) pg MCHC 33.7 (33.0-35.0) g/dL Plt Count 476 H (150-450) 10^3/uL Neut % (Auto) 95.3 H (42.2-75.2) % Lymph % (Auto) 4.0 L (20.5-50.1) % [place] % (Auto) 0.5 L (2-8) % Eos % (Auto) 0.0 L (1.0-3.0) % Baso % (Auto) 0.2 (0.0-1.0) % ABG pH (7.35-7.45) ABG pCO2 (35-45) mmHg ABG pO2 (70-100) mmHg ABG HCO3 (22-26) mmol/L ABG O2 Saturation (95-100) % ABG Base Excess ((-2)-(+3)) mmol/L Cole Test O2 Delivery Device Oxygen Flow Rate Sodium 140 (136-145) mmol/L Potassium 3.6 (3.5-5.1) mmol/L Chloride 105 (98-107) mmol/L Carbon Dioxide 24 (21-32) mmol/L Anion Gap 14.6 H (7-13) mEq/L BUN 11 (7-18) mg/dL Creatinine 0.83 (0.55-1.02) mg/dL Est Cr Clr Drug Dosing 67.70 mL/min Estimated GFR (MDRD) > 60 BUN/Creatinine Ratio 13.3 (No establ ref range) Glucose 171 H (70-99) mg/dL Lactic Acid 3.6 H* (0.4-2.0) mmol/L Calcium 8.6 (8.5-10.1) mg/dL Phosphorus (2.6-4.7) mg/dL Magnesium 1.8 (1.8-2.4) mg/dL Total Bilirubin 0.1 L (0.2-1.0) mg/dL AST 9 L (15-37) U/L ALT 23 (14-59) U/L Alkaline Phosphatase 116 (46-116) U/L Troponin I < 0.017 (0.000-0.056) ng/mL Total Protein 7.7 (6.4-8.2) g/dL Albumin 3.3 L (3.4-5.0) g/dL Globulin 4.4 Albumin/Globulin Ratio 0.75 SARS-CoV-2 RNA (ZAHRAA) (NEGATIVE) 02/15/21 02/15/21 Range/Units 06:15 06:15 WBC (5.0-10.0) 10^3/uL RBC (4.2-5.4) 10^6/uL Hgb (12.0-16.0) g/dL Hct (37.0-47.0) % MCV (80-100) fL MCH (27.0-34.0) pg MCHC (33.0-35.0) g/dL Plt Count (150-450) 10^3/uL Neut % (Auto) (42.2-75.2) % Lymph % (Auto) (20.5-50.1) % [place] % (Auto) (2-8) % Eos % (Auto) (1.0-3.0) % Baso % (Auto) (0.0-1.0) % ABG pH (7.35-7.45) ABG pCO2 (35-45) mmHg ABG pO2 (70-100) mmHg ABG HCO3 (22-26) mmol/L ABG O2 Saturation (95-100) % ABG Base Excess ((-2)-(+3)) mmol/L Cole Test O2 Delivery Device Oxygen Flow Rate Sodium 139 (136-145) mmol/L Potassium 4.3 (3.5-5.1) mmol/L Chloride 105 (98-107) mmol/L Carbon Dioxide 23 (21-32) mmol/L Anion Gap 15.3 H (7-13) mEq/L BUN 9 (7-18) mg/dL Creatinine 0.71 (0.55-1.02) mg/dL Est Cr Clr Drug Dosing 79.14 mL/min Estimated GFR (MDRD) > 60 BUN/Creatinine Ratio (No establ ref range) Glucose 167 H (70-99) mg/dL Lactic Acid 2.8 H* (0.4-2.0) mmol/L Calcium 8.4 L (8.5-10.1) mg/dL Phosphorus 2.3 L (2.6-4.7) mg/dL Magnesium 2.0 (1.8-2.4) mg/dL Total Bilirubin (0.2-1.0) mg/dL AST (15-37) U/L ALT (14-59) U/L Alkaline Phosphatase (46-116) U/L Troponin I (0.000-0.056) ng/mL Total Protein (6.4-8.2) g/dL Albumin (3.4-5.0) g/dL Globulin Albumin/Globulin Ratio SARS-CoV-2 RNA (ZAHRAA) (NEGATIVE) Result Diagrams: 02/15/21 06:15 02/15/21 06:15 Problem List Initiated/Reviewed/Updated: Yes Orders Last 24hrs: Active Orders 24 hr Category Date Time Status Admission Diagnosis [ADT] Stat ADT 02/15/21 00:11 Ordered Admission Status [Patient Status] [ADT] Routine ADT 02/15/21 00:11 Active Patient Status [ADT] Routine ADT 02/15/21 00:27 Active Blood Glucose Check, Bedside [RC] WITHMEALSANDBED Care 02/15/21 08:51 Active Oxygen Therapy [RC] PRN Care 02/15/21 00:27 Active Pulse Oximetry [RC] CONTINUOUS Care 02/15/21 00:27 Active RT Aerosol Therapy [RC] ASDIRECTED Care 02/14/21 23:04 Active RT Aerosol Therapy [RC] ASDIRECTED Care 02/15/21 00:29 Active RT Aerosol Therapy [RC] ASDIRECTED Care 02/15/21 00:32 Active Up ad Amy [RC] ASDIRECTED Care 02/15/21 00:27 Active Vital Signs [RC] 00,04,08,12,16,20 Care 02/15/21 00:27 Active Respiratory Care Assess and Treatment [CONS] Routine Cons 02/15/21 00:27 Active Regular Diet [DIET] Diet 02/15/21 Breakfast Active Acetaminophen [TylenoL] Med 02/15/21 00:27 Active 650 mg PO Q4H PRN Albuterol/Ipratropium [DuoNeb 3.0-0.5 MG/3 ML] Med 02/15/21 00:27 Active 3 ml NEB Q4H PRN Albuterol/Ipratropium [DuoNeb 3.0-0.5 MG/3 ML] Med 02/15/21 07:00 Active 3 ml NEB QIDRT Azithromycin [Zithromax 200 MG/5 ML Susp] Med 02/16/21 09:00 Active 250 mg PO DAILY Dextrose 50% in Water Med 02/15/21 08:51 Active 50 ml IV Q15M PRN Enoxaparin [Lovenox] Med 02/15/21 09:00 Active 40 mg SUBCUT DAILY Glucagon,Human Recombinant [GlucaGen] Med 02/15/21 08:51 Active 1 mg IM Q15M PRN Insulin Lispro [HumaLOG] Med 02/15/21 12:00 Active See Protocol SUBCUT WITHMEALSANDBED Montelukast [Singulair] Med 02/15/21 21:00 Active 10 mg PO BEDTIME Nicotine [Habitrol] Med 02/15/21 09:00 Active 7 mg TRDERM DAILY methylPREDNISolone Sod Succ [Solu-MEDROL] Med 02/15/21 06:00 Active 40 mg IVPUSH Q6H Resuscitation Status Routine Resus Stat 02/15/21 00:27 Ordered Medication Orders Acetaminophen (Acetaminophen 325 Mg Tab) 650 mg PO Q4H PRN PRN Reason: Pain (Mild 1-3)/fever Albuterol/Ipratropium (Albuterol/Ipratropium 3.0-0.5 Mg/3 Ml Neb Soln) 3 ml NEB Q4H PRN PRN Reason: shortness of breath/wheezing Last Admin: 02/15/21 03:33 Dose: 3 ml Documented by: UMU Albuterol/Ipratropium (Albuterol/Ipratropium 3.0-0.5 Mg/3 Ml Neb Soln) 3 ml NEB QIDRT [facility] Last Admin: 02/15/21 07:32 Dose: 3 ml Documented by: Admin: 02/15/21 00:51 Dose: 3 ml Documented by: TRINITY Azithromycin (Azithromycin 200 Mg/5 Ml Susp 30 Ml Bottle) 250 mg PO DAILY [facility] Dextrose/Water (50% Dextrose In Water 50 Ml Syringe) 50 ml IV Q15M PRN PRN Reason: Hypoglycemia Enoxaparin Sodium (Enoxaparin 40 Mg/0.4 Ml Syringe) 40 mg SUBCUT DAILY [facility] Last Admin: 02/15/21 09:03 Dose: 40 mg Documented by: HEATHER Glucagon (Glucagon,Human Recombinant 1 Mg Vial) 1 mg IM Q15M PRN PRN Reason: Hypoglycemia Insulin Human Lispro (Insulin Lispro 100 Units/Ml 3 Ml Vial) 0 unit SUBCUT WITHMEALSANDBED [facility]; Protocol Methylprednisolone Sodium Succinate (Methylprednisolone Sodium Succinate 40 Mg/1 Ml Sdv) 40 mg IVPUSH Q6H [facility] Last Admin: 02/15/21 05:40 Dose: 40 mg Documented by: [facility] Montelukast Sodium (Montelukast 10 Mg Tab) 10 mg PO BEDTIME [facility] Nicotine (Nicotine 7 Mg/24 Hr Patch) 7 mg TRDERM DAILY [facility] Last Admin: 02/15/21 09:03 Dose: 7 mg Documented by: HEATHER Assessment/Plan Comment:: #acute respiratory distress 2/2 asthma exacerbation - c/w scheduled and prn nebs, solumedrol 40 q6h, singulair, azithromycin #DM2 - TALIA #polysubstance abuse - counseled #smoker - start nicotine patch PPX - LMWH
[2021-02-15] MEDS: Insulin Lispro 100 Units/ML 3 ML Vial SUBCUT SCH ×3 (12:29→21:19)
[2021-02-15] MEDS: Montelukast 10 MG Tab PO SCH (21:17)
[2021-02-16] MEDS: methylPREDNISolone Sodium Succinate 40 MG/1 ML SDV IVPUSH SCH ×3 (05:43→18:03)
[2021-02-16] MEDS: Sodium Chloride 0.9% 10 ML Syringe FLUSH PRN ×3 (05:43→18:03)
[2021-02-16] MEDS: Nicotine 7 MG/24 Hr Patch TRDERM SCH (08:22)
[2021-02-16] MEDS: Albuterol/Ipratropium 3.0-0.5 MG/3 ML Neb Soln NEB SCH ×4 (08:24→21:08)
[2021-02-16] MEDS: Enoxaparin 40 MG/0.4 ML Syringe SUBCUT SCH (08:24)
[2021-02-16] MEDS: Insulin Lispro 100 Units/ML 3 ML Vial SUBCUT SCH ×4 (08:26→21:05)
[2021-02-16] MEDS: Azithromycin 200 MG/5 ML Susp 30 ML Bottle PO SCH (08:27)
--- NOTE | 2021-02-16 18:45 | PCM.PN ---
- General Info Date of Service: 02/16/21 Subjective Update: Feels slightly better. PF 250s. Still wheezing diffusely. - Patient Data Vitals - Most Recent: Last Vital Signs Temp 97.9 F 02/16/21 16:00 Pulse 102 H 02/16/21 16:00 Resp 20 02/16/21 16:00 BP 114/62 02/16/21 16:00 Pulse Ox 95 02/16/21 16:00 Weight - Most Recent: 156 lb 8 oz I&O - Last 24 Hours: Intake & Output 02/16/21 02/16/21 02/16/21 06:59 14:59 22:59 Intake Total 100 910 420 Balance 100 910 420 Lab Results Last 24 Hours: Laboratory Results - last 24 hr 02/15/21 02/16/21 02/16/21 Range/Units 20:30 08:00 11:25 POC Glucose 158 H 129 H 133 H (70-99) mg/dL 02/16/21 Range/Units 16:39 POC Glucose 145 H (70-99) mg/dL Med Orders - Current: Current Medications Acetaminophen (Acetaminophen 325 Mg Tab) 650 mg PO Q4H PRN PRN Reason: Pain (Mild 1-3)/fever Last Admin: 02/15/21 12:45 Dose: 650 mg Documented by: Albuterol/Ipratropium (Albuterol/Ipratropium 3.0-0.5 Mg/3 Ml Neb Soln) 3 ml NEB Q4H PRN PRN Reason: shortness of breath/wheezing Last Admin: 02/15/21 03:33 Dose: 3 ml Documented by: Albuterol/Ipratropium (Albuterol/Ipratropium 3.0-0.5 Mg/3 Ml Neb Soln) 3 ml NEB QIDRT [facility] Last Admin: 02/16/21 17:44 Dose: 3 ml Documented by: Azithromycin (Azithromycin 200 Mg/5 Ml Susp 30 Ml Bottle) 250 mg PO DAILY [facility] Last Admin: 02/16/21 08:27 Dose: 5 ml Documented by: Dextrose/Water (50% Dextrose In Water 50 Ml Syringe) 50 ml IV Q15M PRN PRN Reason: Hypoglycemia Enoxaparin Sodium (Enoxaparin 40 Mg/0.4 Ml Syringe) 40 mg SUBCUT DAILY [facility] Last Admin: 02/16/21 08:24 Dose: 40 mg Documented by: Glucagon (Glucagon,Human Recombinant 1 Mg Vial) 1 mg IM Q15M PRN PRN Reason: Hypoglycemia Insulin Human Lispro (Insulin Lispro 100 Units/Ml 3 Ml Vial) 0 unit SUBCUT WITHMEALSANDBED [facility]; Protocol Last Admin: 02/16/21 17:19 Dose: Not Given Documented by: Methylprednisolone Sodium Succinate (Methylprednisolone Sodium Succinate 40 Mg/1 Ml Sdv) 40 mg IVPUSH Q6H [facility] Last Admin: 02/16/21 18:03 Dose: 40 mg Documented by: Montelukast Sodium (Montelukast 10 Mg Tab) 10 mg PO BEDTIME [facility] Last Admin: 02/15/21 21:17 Dose: 10 mg Documented by: Nicotine (Nicotine 7 Mg/24 Hr Patch) 7 mg TRDERM DAILY [facility] Last Admin: 02/16/21 08:22 Dose: 7 mg Documented by: Sodium Chloride (Sodium Chloride 0.9% 10 Ml Syringe) 10 ml FLUSH ASDIRECTED PRN PRN Reason: IV Use Last Admin: 02/16/21 18:03 Dose: 10 ml Documented by: Discontinued Medications Albuterol/Ipratropium (Albuterol/Ipratropium 3.0-0.5 Mg/3 Ml Neb Soln) Confirm Administered Dose 3 ml .ROUTE .STK-MED ONE Stop: 02/14/21 22:56 Last Admin: 02/14/21 23:08 Dose: Not Given Documented by: Albuterol/Ipratropium (Albuterol/Ipratropium 3.0-0.5 Mg/3 Ml Neb Soln) 3 ml NEB ONETIME ONE Stop: 02/14/21 23:04 Last Admin: 02/14/21 23:08 Dose: 3 ml Documented by: Diphenhydramine HCl (Diphenhydramine 50 Mg/Ml Sdv) 25 mg IVPUSH ONETIME ONE Stop: 02/14/21 23:54 Last Admin: 02/15/21 00:12 Dose: 25 mg Documented by: Magnesium Sulfate/Dextrose 1 (gm/ Premix) 100 mls @ 100 mls/hr IV ONETIME ONE Stop: 02/15/21 00:31 Last Admin: 02/14/21 23:41 Dose: 100 mls/hr Documented by: Azithromycin 500 mg/ Sodium (Chloride) 250 mls @ 250 mls/hr IV ONETIME ONE Stop: 02/15/21 01:30 Last Admin: 02/15/21 01:13 Dose: 250 mls/hr Documented by: Methylprednisolone Sodium Succinate (Methylprednisolone Sodium Succinate 125 Mg/2 Ml Sdv) 125 mg IVPUSH ONETIME ONE Stop: 02/14/21 23:06 Last Admin: 02/14/21 23:14 Dose: 125 mg Documented by: - Exam Quality Assessment: No: Supplemental Oxygen General: Alert, Oriented HEENT: Pupils Equal Neck: Supple Lungs: Wheezing Cardiovascular: Regular Rate, Regular Rhythm GI/Abdominal Exam: Normal Bowel Sounds, Soft, Non-Tender, No Distention Back Exam: Normal Inspection Extremities: No Pedal Edema Skin: Warm, Dry, Intact Neurological: No New Focal Deficit Psy/Mental Status: Alert, Normal Affect, Normal Mood - Patient Data Lab Results Last 24 hrs: Laboratory Results - last 24 hr 02/15/21 02/16/21 02/16/21 Range/Units 20:30 08:00 11:25 POC Glucose 158 H 129 H 133 H (70-99) mg/dL 02/16/21 Range/Units 16:39 POC Glucose 145 H (70-99) mg/dL Result Diagrams: 02/15/21 06:15 02/15/21 06:15 Sepsis Event Note - Evaluation Sepsis Screening Result: No Definite Risk - Focused Exam Vital Signs: Vital Signs Temp Pulse Resp BP Pulse Ox 02/16/21 16:00 97.9 F 102 H 20 114/62 95 02/16/21 11:35 97.8 F 117 H 20 103/67 91 L 02/16/21 07:41 98.1 F 92 20 101/44 L 93 L - Problem List Review Problem List Initiated/Reviewed/Updated: Yes - My Orders Last 24 Hours: My Active Orders 02/15/21 21:00 Montelukast [Singulair] 10 mg PO BEDTIME 02/15/21 23:05 Sodium Chloride 0.9% [Saline Flush] 10 ml FLUSH ASDIRECTED PRN 02/16/21 09:00 Azithromycin [Zithromax 200 MG/5 ML Susp] 250 mg PO DAILY - Plan Plan:: #acute respiratory distress 2/2 asthma exacerbation - c/w scheduled and prn nebs, solumedrol 40 q6h, singulair, azithromycin #DM2 - [facility] #polysubstance abuse - counseled #smoker - start nicotine patch PPX - LMWH
[2021-02-16] MEDS: Montelukast 10 MG Tab PO SCH (21:08)
[2021-02-17] MEDS: Sodium Chloride 0.9% 10 ML Syringe FLUSH PRN ×5 (00:21→12:21)
[2021-02-17] MEDS: methylPREDNISolone Sodium Succinate 40 MG/1 ML SDV IVPUSH SCH ×4 (00:22→20:53)
[2021-02-17] MEDS: Insulin Lispro 100 Units/ML 3 ML Vial SUBCUT SCH ×4 (08:03→21:04)
[2021-02-17] MEDS: Albuterol/Ipratropium 3.0-0.5 MG/3 ML Neb Soln NEB SCH ×5 (08:30→23:11)
[2021-02-17] MEDS: Enoxaparin 40 MG/0.4 ML Syringe SUBCUT SCH (09:19)
[2021-02-17] MEDS: Nicotine 7 MG/24 Hr Patch TRDERM SCH (09:20)
[2021-02-17] MEDS: Azithromycin 200 MG/5 ML Susp 30 ML Bottle PO SCH (09:21)
--- NOTE | 2021-02-17 17:47 | PCM.PN ---
- General Info Date of Service: 02/17/21 Subjective Update: Feel slightly better. PF marginally better 250s >>> 260s. Still wheezing diffusely and w/ productive cough. - Patient Data Vitals - Most Recent: Last Vital Signs Temp 97.8 F 02/17/21 16:00 Pulse 92 02/17/21 16:00 Resp 18 02/17/21 16:00 BP 124/77 02/17/21 16:00 Pulse Ox 94 L 02/17/21 16:00 Weight - Most Recent: 156 lb 8 oz I&O - Last 24 Hours: Intake & Output 02/17/21 02/17/21 02/17/21 06:59 14:59 22:59 Intake Total 0 1325 Balance 0 1325 Lab Results Last 24 Hours: Laboratory Results - last 24 hr 02/16/21 02/17/21 02/17/21 Range/Units 20:58 07:36 11:28 POC Glucose 157 H 133 H 155 H (70-99) mg/dL 02/17/21 Range/Units 16:48 POC Glucose 129 H (70-99) mg/dL Med Orders - Current: Current Medications Acetaminophen (Acetaminophen 325 Mg Tab) 650 mg PO Q4H PRN PRN Reason: Pain (Mild 1-3)/fever Last Admin: 02/15/21 12:45 Dose: 650 mg Documented by: Albuterol/Ipratropium (Albuterol/Ipratropium 3.0-0.5 Mg/3 Ml Neb Soln) 3 ml NEB Q4H PRN PRN Reason: shortness of breath/wheezing Last Admin: 02/15/21 03:33 Dose: 3 ml Documented by: Albuterol/Ipratropium (Albuterol/Ipratropium 3.0-0.5 Mg/3 Ml Neb Soln) 3 ml NEB QIDRT [facility] Last Admin: 02/17/21 15:39 Dose: 3 ml Documented by: Azithromycin (Azithromycin 200 Mg/5 Ml Susp 30 Ml Bottle) 250 mg PO DAILY [facility] Last Admin: 02/17/21 09:21 Dose: 5 ml Documented by: Dextrose/Water (50% Dextrose In Water 50 Ml Syringe) 50 ml IV Q15M PRN PRN Reason: Hypoglycemia Enoxaparin Sodium (Enoxaparin 40 Mg/0.4 Ml Syringe) 40 mg SUBCUT DAILY [facility] Last Admin: 02/17/21 09:19 Dose: 40 mg Documented by: Glucagon (Glucagon,Human Recombinant 1 Mg Vial) 1 mg IM Q15M PRN PRN Reason: Hypoglycemia Insulin Human Lispro (Insulin Lispro 100 Units/Ml 3 Ml Vial) 0 unit SUBCUT WITHMEALSANDBED [facility]; Protocol Last Admin: 02/17/21 17:18 Dose: Not Given Documented by: Methylprednisolone Sodium Succinate (Methylprednisolone Sodium Succinate 40 Mg/1 Ml Sdv) 40 mg IVPUSH Q8H [facility] Montelukast Sodium (Montelukast 10 Mg Tab) 10 mg PO BEDTIME [facility] Last Admin: 02/16/21 21:08 Dose: 10 mg Documented by: Nicotine (Nicotine 7 Mg/24 Hr Patch) 7 mg TRDERM DAILY [facility] Last Admin: 02/17/21 09:20 Dose: 7 mg Documented by: Sodium Chloride (Sodium Chloride 0.9% 10 Ml Syringe) 10 ml FLUSH ASDIRECTED PRN PRN Reason: IV Use Last Admin: 02/17/21 12:21 Dose: 10 ml Documented by: Discontinued Medications Albuterol/Ipratropium (Albuterol/Ipratropium 3.0-0.5 Mg/3 Ml Neb Soln) Confirm Administered Dose 3 ml .ROUTE .STK-MED ONE Stop: 02/14/21 22:56 Last Admin: 02/14/21 23:08 Dose: Not Given Documented by: Albuterol/Ipratropium (Albuterol/Ipratropium 3.0-0.5 Mg/3 Ml Neb Soln) 3 ml NEB ONETIME ONE Stop: 02/14/21 23:04 Last Admin: 02/14/21 23:08 Dose: 3 ml Documented by: Diphenhydramine HCl (Diphenhydramine 50 Mg/Ml Sdv) 25 mg IVPUSH ONETIME ONE Stop: 02/14/21 23:54 Last Admin: 02/15/21 00:12 Dose: 25 mg Documented by: Magnesium Sulfate/Dextrose 1 (gm/ Premix) 100 mls @ 100 mls/hr IV ONETIME ONE Stop: 02/15/21 00:31 Last Admin: 02/14/21 23:41 Dose: 100 mls/hr Documented by: Azithromycin 500 mg/ Sodium (Chloride) 250 mls @ 250 mls/hr IV ONETIME ONE Stop: 02/15/21 01:30 Last Admin: 02/15/21 01:13 Dose: 250 mls/hr Documented by: Methylprednisolone Sodium Succinate (Methylprednisolone Sodium Succinate 125 Mg/2 Ml Sdv) 125 mg IVPUSH ONETIME ONE Stop: 02/14/21 23:06 Last Admin: 02/14/21 23:14 Dose: 125 mg Documented by: Methylprednisolone Sodium Succinate (Methylprednisolone Sodium Succinate 40 Mg/1 Ml Sdv) 40 mg IVPUSH Q6H [facility] Last Admin: 02/17/21 12:21 Dose: 40 mg Documented by: - Exam Quality Assessment: Supplemental Oxygen General: Alert, Oriented HEENT: Pupils Equal Neck: Supple Lungs: Wheezing (diffusely) Cardiovascular: Regular Rate, Regular Rhythm, No Murmurs GI/Abdominal Exam: Normal Bowel Sounds, Soft, Non-Tender, No Distention Extremities: No Pedal Edema Skin: Warm, Dry, Intact Wound/Incisions: Healing Well Neurological: No New Focal Deficit Psy/Mental Status: Alert, Normal Affect, Normal Mood - Patient Data Lab Results Last 24 hrs: Laboratory Results - last 24 hr 02/16/21 02/17/21 02/17/21 Range/Units 20:58 07:36 11:28 POC Glucose 157 H 133 H 155 H (70-99) mg/dL 02/17/21 Range/Units 16:48 POC Glucose 129 H (70-99) mg/dL Result Diagrams: 02/15/21 06:15 02/15/21 06:15 Sepsis Event Note - Evaluation Sepsis Screening Result: No Definite Risk - Focused Exam Vital Signs: Vital Signs Temp Pulse Resp BP Pulse Ox 02/17/21 16:00 97.8 F 92 18 124/77 94 L 02/17/21 12:00 97.2 F 103 H 20 120/75 95 02/17/21 07:54 98.2 F 79 18 100/48 L 94 L - Problem List Review Problem List Initiated/Reviewed/Updated: Yes - My Orders Last 24 Hours: My Active Orders 02/17/21 20:00 methylPREDNISolone Sod Succ [Solu-MEDROL] 40 mg IVPUSH Q8H - Plan Plan:: #acute respiratory distress 2/2 asthma exacerbation - c/w scheduled and prn n ebs, singulair, azithromycin - taper solumedrol q8h >>> q6h #DM2 - [facility] #polysubstance abuse - counseled #smoker - start nicotine patch PPX - LMWH
[2021-02-17] MEDS: Montelukast 10 MG Tab PO SCH (20:53)
[2021-02-18] MEDS: methylPREDNISolone Sodium Succinate 40 MG/1 ML SDV IVPUSH SCH ×3 (04:09→20:01)
[2021-02-18] MEDS: Albuterol/Ipratropium 3.0-0.5 MG/3 ML Neb Soln NEB SCH ×4 (08:40→21:51)
[2021-02-18] MEDS: Insulin Lispro 100 Units/ML 3 ML Vial SUBCUT SCH ×4 (08:55→20:12)
[2021-02-18] MEDS: Nicotine 7 MG/24 Hr Patch TRDERM SCH (08:56)
[2021-02-18] MEDS: Azithromycin 200 MG/5 ML Susp 30 ML Bottle PO SCH (08:56)
[2021-02-18] MEDS: Enoxaparin 40 MG/0.4 ML Syringe SUBCUT SCH (08:57)
--- NOTE | 2021-02-18 10:16 | PCM.PN ---
- General Info Date of Service: 02/18/21 Subjective Update: Feels the same. PF improved 280 >>> 330. Noted desaturating on ambulation. - Patient Data Vitals - Most Recent: Last Vital Signs Temp 97.7 F 02/18/21 07:49 Pulse 70 02/18/21 07:49 Resp 20 02/18/21 07:49 BP 104/65 02/18/21 07:49 Pulse Ox 95 02/18/21 07:49 Weight - Most Recent: 156 lb 8 oz I&O - Last 24 Hours: Intake & Output 02/17/21 02/18/21 02/18/21 22:59 06:59 14:59 Intake Total 1335 Balance 1335 Lab Results Last 24 Hours: Laboratory Results - last 24 hr 02/17/21 02/17/21 02/17/21 Range/Units 11:28 16:48 20:48 POC Glucose 155 H 129 H 110 H (70-99) mg/dL 02/18/21 Range/Units 07:42 POC Glucose 114 H (70-99) mg/dL Med Orders - Current: Current Medications Acetaminophen (Acetaminophen 325 Mg Tab) 650 mg PO Q4H PRN PRN Reason: Pain (Mild 1-3)/fever Last Admin: 02/15/21 12:45 Dose: 650 mg Documented by: Albuterol/Ipratropium (Albuterol/Ipratropium 3.0-0.5 Mg/3 Ml Neb Soln) 3 ml NEB Q4H PRN PRN Reason: shortness of breath/wheezing Last Admin: 02/15/21 03:33 Dose: 3 ml Documented by: Albuterol/Ipratropium (Albuterol/Ipratropium 3.0-0.5 Mg/3 Ml Neb Soln) 3 ml NEB QIDRT [facility] Last Admin: 02/18/21 08:40 Dose: 3 ml Documented by: Azithromycin (Azithromycin 200 Mg/5 Ml Susp 30 Ml Bottle) 250 mg PO DAILY [facility] Last Admin: 02/18/21 08:56 Dose: 5 ml Documented by: Dextrose/Water (50% Dextrose In Water 50 Ml Syringe) 50 ml IV Q15M PRN PRN Reason: Hypoglycemia Enoxaparin Sodium (Enoxaparin 40 Mg/0.4 Ml Syringe) 40 mg SUBCUT DAILY [facility] Last Admin: 02/18/21 08:57 Dose: 40 mg Documented by: Glucagon (Glucagon,Human Recombinant 1 Mg Vial) 1 mg IM Q15M PRN PRN Reason: Hypoglycemia Insulin Human Lispro (Insulin Lispro 100 Units/Ml 3 Ml Vial) 0 unit SUBCUT WITHMEALSANDBED [facility]; Protocol Last Admin: 02/18/21 08:55 Dose: Not Given Documented by: Methylprednisolone Sodium Succinate (Methylprednisolone Sodium Succinate 40 Mg/1 Ml Sdv) 40 mg IVPUSH Q8H [facility] Last Admin: 02/18/21 04:09 Dose: 40 mg Documented by: Montelukast Sodium (Montelukast 10 Mg Tab) 10 mg PO BEDTIME [facility] Last Admin: 02/17/21 20:53 Dose: 10 mg Documented by: Nicotine (Nicotine 7 Mg/24 Hr Patch) 7 mg TRDERM DAILY [facility] Last Admin: 02/18/21 08:56 Dose: 7 mg Documented by: Sodium Chloride (Sodium Chloride 0.9% 10 Ml Syringe) 10 ml FLUSH ASDIRECTED PRN PRN Reason: IV Use Last Admin: 02/17/21 12:21 Dose: 10 ml Documented by: Discontinued Medications Albuterol/Ipratropium (Albuterol/Ipratropium 3.0-0.5 Mg/3 Ml Neb Soln) Confirm Administered Dose 3 ml .ROUTE .STK-MED ONE Stop: 02/14/21 22:56 Last Admin: 02/14/21 23:08 Dose: Not Given Documented by: Albuterol/Ipratropium (Albuterol/Ipratropium 3.0-0.5 Mg/3 Ml Neb Soln) 3 ml NEB ONETIME ONE Stop: 02/14/21 23:04 Last Admin: 02/14/21 23:08 Dose: 3 ml Documented by: Diphenhydramine HCl (Diphenhydramine 50 Mg/Ml Sdv) 25 mg IVPUSH ONETIME ONE Stop: 02/14/21 23:54 Last Admin: 02/15/21 00:12 Dose: 25 mg Documented by: Magnesium Sulfate/Dextrose 1 (gm/ Premix) 100 mls @ 100 mls/hr IV ONETIME ONE Stop: 02/15/21 00:31 Last Admin: 02/14/21 23:41 Dose: 100 mls/hr Documented by: Azithromycin 500 mg/ Sodium (Chloride) 250 mls @ 250 mls/hr IV ONETIME ONE Stop: 02/15/21 01:30 Last Admin: 02/15/21 01:13 Dose: 250 mls/hr Documented by: Methylprednisolone Sodium Succinate (Methylprednisolone Sodium Succinate 125 Mg/2 Ml Sdv) 125 mg IVPUSH ONETIME ONE Stop: 02/14/21 23:06 Last Admin: 02/14/21 23:14 Dose: 125 mg Documented by: Methylprednisolone Sodium Succinate (Methylprednisolone Sodium Succinate 40 Mg/1 Ml Sdv) 40 mg IVPUSH Q6H [facility] Last Admin: 02/17/21 12:21 Dose: 40 mg Documented by: - Exam Quality Assessment: Supplemental Oxygen - Patient Data Lab Results Last 24 hrs: Laboratory Results - last 24 hr 02/17/21 02/17/21 02/17/21 Range/Units 11:28 16:48 20:48 POC Glucose 155 H 129 H 110 H (70-99) mg/dL 02/18/21 Range/Units 07:42 POC Glucose 114 H (70-99) mg/dL Result Diagrams: 02/15/21 06:15 02/15/21 06:15 Sepsis Event Note - Evaluation Sepsis Screening Result: No Definite Risk - Focused Exam Vital Signs: Vital Signs Temp Pulse Resp BP Pulse Ox Pulse Ox 02/18/21 07:49 97.7 F 70 20 104/65 95 02/18/21 04:00 97.9 F 79 18 120/83 94 L 02/18/21 02:00 94 L 02/18/21 00:00 97.9 F 92 20 135/72 97 - Problem List Review Problem List Initiated/Reviewed/Updated: Yes - My Orders Last 24 Hours: My Active Orders 02/17/21 20:00 methylPREDNISolone Sod Succ [Solu-MEDROL] 40 mg IVPUSH Q8H - Plan Plan:: #acute hypoxic respiratory failure 2/2 asthma exacerbation - c/w scheduled and prn nebs, singulair, azithromycin, solumedrol q8h #DM2 - [facility] #polysubstance abuse - counseled #smoker - nicotine patch PPX - LMWH
[2021-02-18] MEDS: Montelukast 10 MG Tab PO SCH (20:00)
[2021-02-19] MEDS: methylPREDNISolone Sodium Succinate 40 MG/1 ML SDV IVPUSH SCH ×3 (04:44→21:03)
[2021-02-19] MEDS: Albuterol/Ipratropium 3.0-0.5 MG/3 ML Neb Soln NEB SCH ×4 (07:46→21:25)
[2021-02-19] MEDS: Enoxaparin 40 MG/0.4 ML Syringe SUBCUT SCH (08:24)
[2021-02-19] MEDS: Azithromycin 200 MG/5 ML Susp 30 ML Bottle PO SCH (08:24)
[2021-02-19] MEDS: Nicotine 7 MG/24 Hr Patch TRDERM SCH (08:25)
[2021-02-19] MEDS: Insulin Lispro 100 Units/ML 3 ML Vial SUBCUT SCH ×4 (08:28→21:25)
--- NOTE | 2021-02-19 12:23 | PCM.PN ---
- General Info Date of Service: 02/19/21 Admission Dx/Problem (Free Text): Feels better and maintaining sats on ambulation but PF unchanged at 330. Still wheezing diffusely. - Patient Data Vitals - Most Recent: Last Vital Signs Temp 97.0 F 02/19/21 08:00 Pulse 82 02/19/21 08:00 Resp 20 02/19/21 08:00 BP 114/70 02/19/21 08:00 Pulse Ox 96 02/19/21 08:00 Weight - Most Recent: 156 lb 8 oz I&O - Last 24 Hours: Intake & Output 02/18/21 02/19/21 02/19/21 22:59 06:59 14:59 Intake Total 1005 50 Balance 1005 50 Lab Results Last 24 Hours: Laboratory Results - last 24 hr 02/18/21 02/18/21 02/19/21 Range/Units 16:49 19:58 07:51 POC Glucose 133 H 177 H 119 H (70-99) mg/dL 02/19/21 Range/Units 11:28 POC Glucose 149 H (70-99) mg/dL Med Orders - Current: Current Medications Acetaminophen (Acetaminophen 325 Mg Tab) 650 mg PO Q4H PRN PRN Reason: Pain (Mild 1-3)/fever Last Admin: 02/15/21 12:45 Dose: 650 mg Documented by: Albuterol/Ipratropium (Albuterol/Ipratropium 3.0-0.5 Mg/3 Ml Neb Soln) 3 ml NEB Q4H PRN PRN Reason: shortness of breath/wheezing Last Admin: 02/15/21 03:33 Dose: 3 ml Documented by: Albuterol/Ipratropium (Albuterol/Ipratropium 3.0-0.5 Mg/3 Ml Neb Soln) 3 ml NEB QIDRT [facility] Last Admin: 02/19/21 07:46 Dose: 3 ml Documented by: Azithromycin (Azithromycin 200 Mg/5 Ml Susp 30 Ml Bottle) 250 mg PO DAILY [facility] Last Admin: 02/19/21 08:24 Dose: 5 ml Documented by: Dextrose/Water (50% Dextrose In Water 50 Ml Syringe) 50 ml IV Q15M PRN PRN Reason: Hypoglycemia Enoxaparin Sodium (Enoxaparin 40 Mg/0.4 Ml Syringe) 40 mg SUBCUT DAILY [facility] Last Admin: 02/19/21 08:24 Dose: 40 mg Documented by: Glucagon (Glucagon,Human Recombinant 1 Mg Vial) 1 mg IM Q15M PRN PRN Reason: Hypoglycemia Insulin Human Lispro (Insulin Lispro 100 Units/Ml 3 Ml Vial) 0 unit SUBCUT WITHMEALSANDBED [facility]; Protocol Last Admin: 02/19/21 11:59 Dose: Not Given Documented by: Melatonin (Melatonin 3 Mg Tab) 3 mg PO BEDTIME PRN PRN Reason: Insomnia Methylprednisolone Sodium Succinate (Methylprednisolone Sodium Succinate 40 Mg/1 Ml Sdv) 40 mg IVPUSH Q8H [facility] Last Admin: 02/19/21 04:44 Dose: 40 mg Documented by: Montelukast Sodium (Montelukast 10 Mg Tab) 10 mg PO BEDTIME [facility] Last Admin: 02/18/21 20:00 Dose: 10 mg Documented by: Nicotine (Nicotine 7 Mg/24 Hr Patch) 7 mg TRDERM DAILY [facility] Last Admin: 02/19/21 08:25 Dose: 7 mg Documented by: Sodium Chloride (Sodium Chloride 0.9% 10 Ml Syringe) 10 ml FLUSH ASDIRECTED PRN PRN Reason: IV Use Last Admin: 02/17/21 12:21 Dose: 10 ml Documented by: Discontinued Medications Albuterol/Ipratropium (Albuterol/Ipratropium 3.0-0.5 Mg/3 Ml Neb Soln) Confirm Administered Dose 3 ml .ROUTE .STK-MED ONE Stop: 02/14/21 22:56 Last Admin: 02/14/21 23:08 Dose: Not Given Documented by: Albuterol/Ipratropium (Albuterol/Ipratropium 3.0-0.5 Mg/3 Ml Neb Soln) 3 ml NEB ONETIME ONE Stop: 02/14/21 23:04 Last Admin: 02/14/21 23:08 Dose: 3 ml Documented by: Diphenhydramine HCl (Diphenhydramine 50 Mg/Ml Sdv) 25 mg IVPUSH ONETIME ONE Stop: 02/14/21 23:54 Last Admin: 02/15/21 00:12 Dose: 25 mg Documented by: Magnesium Sulfate/Dextrose 1 (gm/ Premix) 100 mls @ 100 mls/hr IV ONETIME ONE Stop: 02/15/21 00:31 Last Admin: 02/14/21 23:41 Dose: 100 mls/hr Documented by: Azithromycin 500 mg/ Sodium (Chloride) 250 mls @ 250 mls/hr IV ONETIME ONE Stop: 02/15/21 01:30 Last Admin: 02/15/21 01:13 Dose: 250 mls/hr Documented by: Methylprednisolone Sodium Succinate (Methylprednisolone Sodium Succinate 125 Mg /2 Ml Sdv) 125 mg IVPUSH ONETIME ONE Stop: 02/14/21 23:06 Last Admin: 02/14/21 23:14 Dose: 125 mg Documented by: Methylprednisolone Sodium Succinate (Methylprednisolone Sodium Succinate 40 Mg/1 Ml Sdv) 40 mg IVPUSH Q6H [facility] Last Admin: 02/17/21 12:21 Dose: 40 mg Documented by: - Exam Quality Assessment: Supplemental Oxygen General: Alert, Oriented HEENT: Pupils Equal Neck: Supple Lungs: Wheezing (diffusely) Cardiovascular: Regular Rhythm, Tachycardia GI/Abdominal Exam: Normal Bowel Sounds, Soft, Non-Tender, No Distention Back Exam: Normal Inspection Extremities: No Pedal Edema Skin: Warm, Dry, Intact Wound/Incisions: Healing Well Neurological: No New Focal Deficit Psy/Mental Status: Alert, Normal Affect, Normal Mood - Patient Data Lab Results Last 24 hrs: Laboratory Results - last 24 hr 02/18/21 02/18/21 02/19/21 Range/Units 16:49 19:58 07:51 POC Glucose 133 H 177 H 119 H (70-99) mg/dL 02/19/21 Range/Units 11:28 POC Glucose 149 H (70-99) mg/dL Result Diagrams: 02/15/21 06:15 02/15/21 06:15 Sepsis Event Note - Evaluation Sepsis Screening Result: No Definite Risk - Focused Exam Vital Signs: Vital Signs Temp Pulse Resp BP BP Pulse Ox Pulse Ox 02/19/21 08:00 97.0 F 82 20 114/70 96 02/19/21 07:46 96 02/19/21 04:00 97.5 F 79 18 118/74 97 - Problem List Review Problem List Initiated/Reviewed/Updated: Yes - My Orders Last 24 Hours: My Active Orders 02/18/21 20:29 Melatonin 3 mg PO BEDTIME PRN - Plan Plan:: #acute hypoxic respiratory failure 2/2 asthma exacerbation - c/w scheduled and prn nebs, singulair, azithromycin, solumedrol q8h #DM2 - [facility] #polysubstance abuse - counseled #smoker - nicotine patch PPX - LMWH
[2021-02-19] MEDS: Sodium Chloride 0.9% 10 ML Syringe FLUSH PRN (12:32)
[2021-02-19] MEDS: Montelukast 10 MG Tab PO SCH (21:25)
[2021-02-19] MEDS: Melatonin 3 MG Tab PO PRN (22:20)
[2021-02-20] MEDS: Sodium Chloride 0.9% 10 ML Syringe FLUSH PRN (04:33)
[2021-02-20] MEDS: methylPREDNISolone Sodium Succinate 40 MG/1 ML SDV IVPUSH SCH ×2 (04:33→17:46)
[2021-02-20] MEDS: Albuterol/Ipratropium 3.0-0.5 MG/3 ML Neb Soln NEB SCH ×4 (07:27→21:04)
[2021-02-20] MEDS: Insulin Lispro 100 Units/ML 3 ML Vial SUBCUT SCH ×4 (08:47→21:14)
[2021-02-20] MEDS: Nicotine 7 MG/24 Hr Patch TRDERM SCH (08:48)
[2021-02-20] MEDS: Enoxaparin 40 MG/0.4 ML Syringe SUBCUT SCH (08:51)
[2021-02-20] MEDS: Azithromycin 200 MG/5 ML Susp 30 ML Bottle PO SCH (08:53)
--- NOTE | 2021-02-20 10:52 | PCM.PN ---
- General Info Date of Service: 02/20/21 Subjective Update: Feels better. PF stopped improving - 127-330. - Patient Data Vitals - Most Recent: Last Vital Signs Temp 96.9 F 02/20/21 08:27 Pulse 91 02/20/21 08:27 Resp 20 02/20/21 08:27 BP 129/75 02/20/21 08:27 Pulse Ox 93 L 02/20/21 08:27 Weight - Most Recent: 156 lb 8 oz I&O - Last 24 Hours: Intake & Output 02/19/21 02/20/21 02/20/21 22:59 06:59 14:59 Intake Total 520 500 560 Balance 520 500 560 Lab Results Last 24 Hours: Laboratory Results - last 24 hr 02/19/21 02/19/21 02/19/21 Range/Units 11:28 16:48 20:26 POC Glucose 149 H 131 H 172 H (70-99) mg/dL 02/20/21 Range/Units 08:02 POC Glucose 119 H (70-99) mg/dL Med Orders - Current: Current Medications Acetaminophen (Acetaminophen 325 Mg Tab) 650 mg PO Q4H PRN PRN Reason: Pain (Mild 1-3)/fever Last Admin: 02/15/21 12:45 Dose: 650 mg Documented by: Albuterol/Ipratropium (Albuterol/Ipratropium 3.0-0.5 Mg/3 Ml Neb Soln) 3 ml NEB Q4H PRN PRN Reason: shortness of breath/wheezing Last Admin: 02/15/21 03:33 Dose: 3 ml Documented by: Albuterol/Ipratropium (Albuterol/Ipratropium 3.0-0.5 Mg/3 Ml Neb Soln) 3 ml NEB QIDRT [facility] Last Admin: 02/20/21 07:27 Dose: 3 ml Documented by: Azithromycin (Azithromycin 200 Mg/5 Ml Susp 30 Ml Bottle) 250 mg PO DAILY [facility] Last Admin: 02/20/21 08:53 Dose: 6 ml Documented by: Dextrose/Water (50% Dextrose In Water 50 Ml Syringe) 50 ml IV Q15M PRN PRN Reason: Hypoglycemia Enoxaparin Sodium (Enoxaparin 40 Mg/0.4 Ml Syringe) 40 mg SUBCUT DAILY [facility] Last Admin: 02/20/21 08:51 Dose: 40 mg Documented by: Glucagon (Glucagon,Human Recombinant 1 Mg Vial) 1 mg IM Q15M PRN PRN Reason: Hypoglycemia Insulin Human Lispro (Insulin Lispro 100 Units/Ml 3 Ml Vial) 0 unit SUBCUT WITHMEALSANDBED [facility]; Protocol Last Admin: 02/20/21 08:47 Dose: Not Given Documented by: Melatonin (Melatonin 3 Mg Tab) 3 mg PO BEDTIME PRN PRN Reason: Insomnia Last Admin: 02/19/21 22:20 Dose: 3 mg Documented by: Methylprednisolone Sodium Succinate (Methylprednisolone Sodium Succinate 40 Mg/1 Ml Sdv) 40 mg IVPUSH Q12H [facility] Montelukast Sodium (Montelukast 10 Mg Tab) 10 mg PO BEDTIME [facility] Last Admin: 02/19/21 21:25 Dose: 10 mg Documented by: Nicotine (Nicotine 7 Mg/24 Hr Patch) 7 mg TRDERM DAILY [facility] Last Admin: 02/20/21 08:48 Dose: 7 mg Documented by: Sodium Chloride (Sodium Chloride 0.9% 10 Ml Syringe) 10 ml FLUSH ASDIRECTED PRN PRN Reason: IV Use Last Admin: 02/20/21 04:33 Dose: 10 ml Documented by: Discontinued Medications Albuterol/Ipratropium (Albuterol/Ipratropium 3.0-0.5 Mg/3 Ml Neb Soln) Confirm Administered Dose 3 ml .ROUTE .STK-MED ONE Stop: 02/14/21 22:56 Last Admin: 02/14/21 23:08 Dose: Not Given Documented by: Albuterol/Ipratropium (Albuterol/Ipratropium 3.0-0.5 Mg/3 Ml Neb Soln) 3 ml NEB ONETIME ONE Stop: 02/14/21 23:04 Last Admin: 02/14/21 23:08 Dose: 3 ml Documented by: Diphenhydramine HCl (Diphenhydramine 50 Mg/Ml Sdv) 25 mg IVPUSH ONETIME ONE Stop: 02/14/21 23:54 Last Admin: 02/15/21 00:12 Dose: 25 mg Documented by: Magnesium Sulfate/Dextrose 1 (gm/ Premix) 100 mls @ 100 mls/hr IV ONETIME ONE Stop: 02/15/21 00:31 Last Admin: 02/14/21 23:41 Dose: 100 mls/hr Documented by: Azithromycin 500 mg/ Sodium (Chloride) 250 mls @ 250 mls/hr IV ONETIME ONE Stop: 02/15/21 01:30 Last Admin: 02/15/21 01:13 Dose: 250 mls/hr Documented by: Methylprednisolone Sodium Succinate (Methylprednisolone Sodium Succinate 125 Mg/2 Ml Sdv) 125 mg IVPUSH ONETIME ONE Stop: 02/14/21 23:06 Last Admin: 02/14/21 23:14 Dose: 125 mg Documented by: Methylprednisolone Sodium Succinate (Methylprednisolone Sodium Succinate 40 Mg/1 Ml Sdv) 40 mg IVPUSH Q6H [facility] Last Admin: 02/17/21 12:21 Dose: 40 mg Documented by: Methylprednisolone Sodium Succinate (Methylprednisolone Sodium Succinate 40 Mg/1 Ml Sdv) 40 mg IVPUSH Q8H [facility] Last Admin: 02/20/21 04:33 Dose: 40 mg Documented by: - Exam Quality Assessment: No: Supplemental Oxygen General: Alert, Oriented HEENT: Pupils Equal Neck: Supple Lungs: Wheezing (diffusely) Cardiovascular: Regular Rate, Regular Rhythm GI/Abdominal Exam: Normal Bowel Sounds, Soft, Non-Tender, No Distention Back Exam: Normal Inspection Extremities: No Pedal Edema Skin: Warm, Dry, Intact Neurological: No New Focal Deficit Psy/Mental Status: Alert, Normal Affect, Normal Mood - Patient Data Lab Results Last 24 hrs: Laboratory Results - last 24 hr 02/19/21 02/19/21 02/19/21 Range/Units 11:28 16:48 20:26 POC Glucose 149 H 131 H 172 H (70-99) mg/dL 02/20/21 Range/Units 08:02 POC Glucose 119 H (70-99) mg/dL Result Diagrams: 02/15/21 06:15 02/15/21 06:15 Sepsis Event Note - Evaluation Sepsis Screening Result: No Definite Risk - Focused Exam Vital Signs: Vital Signs Temp Pulse Resp BP Pulse Ox 02/20/21 08:27 96.9 F 91 20 129/75 93 L 02/20/21 00:00 97.8 F 97 20 123/76 97 - Problem List Review Problem List Initiated/Reviewed/Updated: Yes - My Orders Last 24 Hours: My Active Orders 02/20/21 18:00 methylPREDNISolone Sod Succ [Solu-MEDROL] 40 mg IVPUSH Q12H - Plan Plan:: #acute hypoxic respiratory failure 2/2 asthma exacerbation - c/w scheduled and prn nebs, singulair, azithromycin taper solumedrol q8h >>> q12h #DM2 - TALIA #polysubstance abuse - counseled #smoker - nicotine patch PPX - LMWH
[2021-02-20] MEDS: Melatonin 3 MG Tab PO PRN (21:03)
[2021-02-20] MEDS: Montelukast 10 MG Tab PO SCH (21:04)
[2021-02-21] MEDS: Sodium Chloride 0.9% 10 ML Syringe FLUSH PRN (05:57)
[2021-02-21] MEDS: methylPREDNISolone Sodium Succinate 40 MG/1 ML SDV IVPUSH SCH (05:57)
[2021-02-21] MEDS: Albuterol/Ipratropium 3.0-0.5 MG/3 ML Neb Soln NEB SCH (08:07)
[2021-02-21] MEDS: Nicotine 7 MG/24 Hr Patch TRDERM SCH (10:00)
[2021-02-21] MEDS: Enoxaparin 40 MG/0.4 ML Syringe SUBCUT SCH (10:00)
--- NOTE | 2021-02-21 10:47 | PCM.DCSUM1 ---
Discharge Summary - Hospital Course Free Text/Narrative:: 45F w/ pmh asthma c/b multiple intubations, active smoker, meth use, DM p/w respiratory distress. Pt notes onset of dyspnea, productive cough and wheezing about 2 days ago. Denies fevers. Symptoms are similar to prior asthma exacerbations. Initially in ED w/ severe respiratory distress but improved w/ serial nebulizers. Pt had an uncomplicated but prolonged course. She improved IV steroids and serial nebulizers. She is discharged on a prolonged prednisone taper. - Discharge Data Discharge Date: 02/21/21 Discharge Disposition: Home, Self-Care 01 Condition: Good - Referral to Home Health Primary Care Physician: Emy Maza MD - Patient Summary/Data Consults: Consultations 02/15/21 00:27 Respiratory Care Assess and Treatment [CONS] Routine - Discharge Plan *PRESCRIPTION DRUG MONITORING PROGRAM REVIEWED*: No *COPY OF PRESCRIPTION DRUG MONITORING REPORT IN PATIENT KAREEM: No Prescriptions/Med Rec: predniSONE [Prednisone] 40 mg PO DAILY #14 tablet Home Medications: Home Meds Albuterol [Proventil HFA] 6.7 gm INH Q6H 11/08/15 [History] Albuterol/Ipratropium [DuoNeb 3.0-0.5 MG/3 ML] 3 ml NEB Q4HRRT 11/08/15 [History] Fluticasone Propion/Salmeterol [Wixela 500-50 Inhub] 1 inh INH BID 02/20/20 [History] Tiotropium [Spiriva HandiHaler] 18 mcg INH DAILY 02/15/21 [History] metFORMIN HCl [Metformin HCl] 500 mg PO BIDMEALS 02/15/21 [History] predniSONE [Prednisone] 40 mg PO DAILY #14 tablet 02/21/21 [Rx] Patient Handouts: Type 2 Diabetes Mellitus, Diagnosis, Adult, Diabetes Mellitus and Foot Care, Tips for Eating Away From Home If You Have Diabetes, Diabetes Mellitus and Sick Day Management, Hyperglycemia, Moog-lu-Rauf, Asthma Attack Referrals: Laci Scott MD [Ordering Only Provider] - - Discharge Summary/Plan Comment DC Time >30 min.: Yes (35 min) - Patient Data Vitals - Most Recent: Last Vital Signs Temp 97.3 F 02/21/21 07:40 Pulse 51 L 02/21/21 07:40 Resp 19 02/21/21 07:40 BP 111/58 L 02/21/21 07:40 Pulse Ox 99 02/21/21 07:40 Weight - Most Recent: 156 lb 8 oz I&O - Last 24 hours: Intake & Output 02/20/21 02/21/21 02/21/21 22:59 06:59 14:59 Intake Total 670 100 Balance 670 100 Lab Results - Last 24 hrs: Laboratory Results - last 24 hr 02/20/21 02/20/21 02/20/21 Range/Units 11:25 16:59 21:07 POC Glucose 185 H 108 H 178 H (70-99) mg/dL 02/21/21 Range/Units 07:32 POC Glucose 103 H (70-99) mg/dL Med Orders - Current: Current Medications Acetaminophen (Acetaminophen 325 Mg Tab) 650 mg PO Q4H PRN PRN Reason: Pain (Mild 1-3)/fever Last Admin: 02/15/21 12:45 Dose: 650 mg Documented by: Albuterol/Ipratropium (Albuterol/Ipratropium 3.0-0.5 Mg/3 Ml Neb Soln) 3 ml NEB Q4H PRN PRN Reason: shortness of breath/wheezing Last Admin: 02/15/21 03:33 Dose: 3 ml Documented by: Albuterol/Ipratropium (Albuterol/Ipratropium 3.0-0.5 Mg/3 Ml Neb Soln) 3 ml NEB QIDRT [facility] Last Admin: 02/21/21 08:07 Dose: 3 ml Documented by: Dextrose/Water (50% Dextrose In Water 50 Ml Syringe) 50 ml IV Q15M PRN PRN Reason: Hypoglycemia Enoxaparin Sodium (Enoxaparin 40 Mg/0.4 Ml Syringe) 40 mg SUBCUT DAILY [facility] Last Admin: 02/20/21 08:51 Dose: 40 mg Documented by: Glucagon (Glucagon,Human Recombinant 1 Mg Vial) 1 mg IM Q15M PRN PRN Reason: Hypoglycemia Insulin Human Lispro (Insulin Lispro 100 Units/Ml 3 Ml Vial) 0 unit SUBCUT WITHMEALSANDBED [facility]; Protocol Last Admin: 02/20/21 21:14 Dose: 2 units Documented by: Melatonin (Melatonin 3 Mg Tab) 3 mg PO BEDTIME PRN PRN Reason: Insomnia Last Admin: 02/20/21 21:03 Dose: 3 mg Documented by: Methylprednisolone Sodium Succinate (Methylprednisolone Sodium Succinate 40 Mg/1 Ml Sdv) 40 mg IVPUSH Q12H [facility] Last Admin: 02/21/21 05:57 Dose: 40 mg Documented by: Montelukast Sodium (Montelukast 10 Mg Tab) 10 mg PO BEDTIME [facility] Last Admin: 02/20/21 21:04 Dose: 10 mg Documented by: Nicotine (Nicotine 7 Mg/24 Hr Patch) 7 mg TRDERM DAILY [facility] Last Admin: 02/20/21 08:48 Dose: 7 mg Documented by: Sodium Chloride (Sodium Chloride 0.9% 10 Ml Syringe) 10 ml FLUSH ASDIRECTED PRN PRN Reason: IV Use Last Admin: 02/21/21 05:57 Dose: 10 ml Documented by: Discontinued Medications Albuterol/Ipratropium (Albuterol/Ipratropium 3.0-0.5 Mg/3 Ml Neb Soln) Confirm Administered Dose 3 ml .ROUTE .STK-MED ONE Stop: 02/14/21 22:56 Last Admin: 02/14/21 23:08 Dose: Not Given Documented by: Albuterol/Ipratropium (Albuterol/Ipratropium 3.0-0.5 Mg/3 Ml Neb Soln) 3 ml NEB ONETIME ONE Stop: 02/14/21 23:04 Last Admin: 02/14/21 23:08 Dose: 3 ml Documented by: Azithromycin (Azithromycin 200 Mg/5 Ml Susp 30 Ml Bottle) 250 mg PO DAILY [facility] Last Admin: 02/20/21 08:53 Dose: 6 ml Documented by: Diphenhydramine HCl (Diphenhydramine 50 Mg/Ml Sdv) 25 mg IVPUSH ONETIME ONE Stop: 02/14/21 23:54 Last Admin: 02/15/21 00:12 Dose: 25 mg Documented by: Magnesium Sulfate/Dextrose 1 (gm/ Premix) 100 mls @ 100 mls/hr IV ONETIME ONE Stop: 02/15/21 00:31 Last Admin: 02/14/21 23:41 Dose: 100 mls/hr Documented by: Azithromycin 500 mg/ Sodium (Chloride) 250 mls @ 250 mls/hr IV ONETIME ONE Stop: 02/15/21 01:30 Last Admin: 02/15/21 01:13 Dose: 250 mls/hr Documented by: Methylprednisolone Sodium Succinate (Methylprednisolone Sodium Succinate 125 Mg/2 Ml Sdv) 125 mg IVPUSH ONETIME ONE Stop: 02/14/21 23:06 Last Admin: 02/14/21 23:14 Dose: 125 mg Documented by: Methylprednisolone Sodium Succinate (Methylprednisolone Sodium Succinate 40 Mg/1 Ml Sdv) 40 mg IVPUSH Q6H [facility] Last Admin: 02/17/21 12:21 Dose: 40 mg Documented by: Methylprednisolone Sodium Succinate (Methylprednisolone Sodium Succinate 40 Mg/1 Ml Sdv) 40 mg IVPUSH Q8H [facility] Last Admin: 02/20/21 04:33 Dose: 40 mg Documented by:
[2021-02-21 11:17] VITALS: BP 120/55; PULSE 102
[2021-02-24] MEDS: Insulin Lispro 100 Units/ML 3 ML Vial SUBCUT SCH (11:19)
== END 2021-02-21 12:40 | disposition home or self-care (01) | DRG 202 ==
LOC: DL.ED 22:37 → DL.MS 02-15 00:11
PROVIDERS: ADMIT Internal Medicine; ATTEND Internal Medicine
DX: J45.52 Severe persistent asthma with status asthmaticus (principal); J96.01 Acute respiratory failure with hypoxia; E11.9 Type 2 diabetes mellitus without complications; Z20.822 Contact with and (suspected) exposure to COVID-19; E05.90 Thyrotoxicosis, unspecified without thyrotoxic crisis or storm; F17.210 Nicotine dependence, cigarettes, uncomplicated; F15.10 Other stimulant abuse, uncomplicated; F12.10 Cannabis abuse, uncomplicated; Z79.52 Long term (current) use of systemic steroids; Z79.51 Long term (current) use of inhaled steroids; Z90.710 Acquired absence of both cervix and uterus; Z79.84 Long term (current) use of oral hypoglycemic drugs; Z79.899 Other long term (current) drug therapy
CPT/HCPCS: 36410; 36415; 36600; 71045; 80048; 80053; 82803; 82947; 83605; 83735; 84100; 84484; 85025; 94640; 96365; 96375; 99284; 99285-25; A9270-GY; J0456; J1200; J1650; J1815-GY; J2920; J2930; J3475; J7050; J7620-GY; U0002